=== PATIENT | male | born 1955 | race Caucasian/White ===

== ENCOUNTER → 2019-06-18 18:54 | Outpatient (BNVA) | payer BC, SELFPAY | PROVIDERS: Family Provider Family Medicine; PCP Family Medicine; Visit Provider Family Medicine | DX: R35.0 Frequency of micturition (principal); N30.01 Acute cystitis with hematuria | CPT/HCPCS: 80053; 81000 ==

== ENCOUNTER → 2019-06-25 08:43 | Outpatient (BNVA) | payer BC, SELFPAY | PROVIDERS: Family Provider Family Medicine; PCP Family Medicine; Visit Provider Urology | DX: R35.1 Nocturia (principal); N41.9 Inflammatory disease of prostate, unspecified; R97.20 Elevated prostate specific antigen [PSA]; K40.20 Bilateral inguinal hernia, without obstruction or gangrene, not specified as recurrent | CPT/HCPCS: 81001 ==

== ENCOUNTER → 2019-08-08 08:38 | Outpatient (BNVA) | payer BC, SELFPAY | PROVIDERS: Family Provider Family Medicine; PCP Family Medicine; Visit Provider Family Medicine | DX: E78.5 Hyperlipidemia, unspecified (principal); I10 Essential (primary) hypertension; R73.03 Prediabetes; K21.9 Gastro-esophageal reflux disease without esophagitis; F41.9 Anxiety disorder, unspecified | CPT/HCPCS: 80053; 80061; 82044; 83036; 85025 ==

== ENCOUNTER → 2019-12-05 10:55 | Outpatient (BNVA) | payer BC, SELFPAY | PROVIDERS: Family Provider Family Medicine; PCP Family Medicine; Visit Provider Urology | DX: R97.20 Elevated prostate specific antigen [PSA] (principal); N41.9 Inflammatory disease of prostate, unspecified | CPT/HCPCS: 81001; 84153 ==

== ENCOUNTER → 2020-02-07 13:37 | Outpatient (BNVA) | payer BC, SELFPAY | PROVIDERS: Family Provider Family Medicine; PCP Family Medicine; Visit Provider Family Medicine Adult Medicine | DX: K21.9 Gastro-esophageal reflux disease without esophagitis (principal); E78.5 Hyperlipidemia, unspecified; I10 Essential (primary) hypertension; R73.03 Prediabetes; R97.20 Elevated prostate specific antigen [PSA]; N41.9 Inflammatory disease of prostate, unspecified; F41.9 Anxiety disorder, unspecified; L72.0 Epidermal cyst | CPT/HCPCS: 80053; 80061; 83036; 84153; 84443; 85025 ==

== ENCOUNTER → 2020-02-21 13:41 | Outpatient (BNVA) | payer BC, SELFPAY | PROVIDERS: Family Provider Family Medicine; PCP Family Medicine; Visit Provider Family Medicine | DX: Z20.828 Contact with and (suspected) exposure to other viral communicable diseases (principal); R50.9 Fever, unspecified | CPT/HCPCS: 87635 ==

== ENCOUNTER → 2020-03-05 08:19 | Outpatient (BNVA) | payer BC, SELFPAY | PROVIDERS: Family Provider Family Medicine; PCP Family Medicine; Visit Provider Urology | DX: R97.20 Elevated prostate specific antigen [PSA] (principal); N39.9 Disorder of urinary system, unspecified | CPT/HCPCS: 84153 ==

== ENCOUNTER → 2020-03-12 08:11 | Outpatient (BNVA) | payer BC, SELFPAY | PROVIDERS: Family Provider Family Medicine; PCP Family Medicine; Visit Provider Urology | DX: N41.9 Inflammatory disease of prostate, unspecified (principal); R97.20 Elevated prostate specific antigen [PSA] | CPT/HCPCS: 81003 ==

== ENCOUNTER 2020-08-14 13:33 | Outpatient (CLI) | payer MEDICARE, SELFPAY ==
--- NOTE | 2020-08-14 13:48 | XR_ITS ---
WS: [id number] Right hip, AP and frog-leg views, 08/14/2020 Clinical Data: right hip pain Comparison: None. Findings: No fractures or dislocations are seen. The right hip joint is intact. The soft tissues are not remark able. The adjacent pelvis is normal. XR/XR hip RT 2-3V wo/w pel* [id number] Impression: Negative right hip. Tonnis classification: grade 0: normal radiographs
== END 2020-08-14 13:34 | disposition home or self-care (01) ==
LOC: RADWPI 13:40
PROVIDERS: Family Provider Family Medicine; PCP Family Medicine; Visit Provider Family Medicine
DX: M25.551 Pain in right hip (principal); R73.03 Prediabetes
CPT/HCPCS: 73502; 80053

== ENCOUNTER → 2020-09-10 08:23 | Outpatient (BNVA) | payer MEDICARE, SELFPAY | PROVIDERS: Family Provider Family Medicine; PCP Family Medicine; Visit Provider Urology | DX: N41.9 Inflammatory disease of prostate, unspecified (principal); R97.20 Elevated prostate specific antigen [PSA]; N20.1 Calculus of ureter; N40.1 Benign prostatic hyperplasia with lower urinary tract symptoms | CPT/HCPCS: 81003; 84153 ==

== ENCOUNTER → 2020-11-13 08:37 | Outpatient (BNVA) | payer MEDICARE, SELFPAY | PROVIDERS: Family Provider Family Medicine; PCP Family Medicine; Visit Provider Family Medicine | DX: E78.5 Hyperlipidemia, unspecified (principal); R73.03 Prediabetes | CPT/HCPCS: 80053; 80061; 83036 ==

== ENCOUNTER → 2021-02-12 09:30 | Outpatient (BNVA) | payer MEDICARE, SELFPAY | PROVIDERS: Family Provider Family Medicine; PCP Family Medicine; Visit Provider Family Medicine | DX: I10 Essential (primary) hypertension (principal); R73.03 Prediabetes; E78.5 Hyperlipidemia, unspecified | CPT/HCPCS: 82043; 85025 ==

== ENCOUNTER → 2021-03-11 08:43 | Outpatient (BNVA) | payer MEDICARE, SELFPAY | PROVIDERS: Family Provider Family Medicine; PCP Family Medicine; Visit Provider Urology | DX: R97.20 Elevated prostate specific antigen [PSA] (principal); N40.1 Benign prostatic hyperplasia with lower urinary tract symptoms; N41.9 Inflammatory disease of prostate, unspecified; Z88.2 Allergy status to sulfonamides | CPT/HCPCS: 81003; 84153 ==

== ENCOUNTER → 2021-03-18 08:24 | Outpatient (BNVA) | payer MEDICARE, SELFPAY | PROVIDERS: Family Provider Family Medicine; PCP Family Medicine; Visit Provider Nurse Practitioner Family | DX: R68.89 Other general symptoms and signs (principal); Z20.822 Contact with and (suspected) exposure to COVID-19 | CPT/HCPCS: 87400; 87426; 87635 ==

== ENCOUNTER 2021-03-20 10:47 | Emergency (ER) | payer MEDICARE, SELFPAY ==
--- NOTE | 2021-03-20 10:49 | XRR_ITS ---
PROCEDURE INFORMATION: Exam: XR Chest Exam date and time: 03/20/2021 10:49 AM Age: 65 years old Clinical indication: Shortness of breath; Additional info: SOB TECHNIQUE: Imaging protocol: XR of the chest. Views: 1 view. COMPARISON: No relevant prior studies available. FINDINGS: Lungs: Visualized portions of the lungs are clear. Pleural spaces: Unremarkable. No pleural effusion. No pneumothorax. Heart/Mediastinum: Heart is within normal limits of size. Bones/joints: There are degenerative changes in the acromioclavicular joints on both sides. There are degenerative changes in the thoracic spine. Postsurgical changes are present in the lower cervical spine. XR/XR chest 1V portable [id number] IMPRESSION: No acute infiltrate.
[2021-03-20 11:24] VITALS: BP 148/83; PULSE 90; RESP 16; TEMP 37.5; O2SAT 99
--- NOTE | 2021-03-20 11:34 | ED_ITS ---
Documented by User: LUTHER Mota 03/20/21 11:37 HPI - General Adult General: Chief complaint: Shortness of Breath/Dyspnea Stated complaint: SOB Nausia, fevor, rash Time Seen by Provider: 03/20/21 11:35 Source: patient Mode of arrival: ambulatory Limitations: no limitations History of Present Illness: HPI narrative: Patient is a 65-year-old male who presents to ED today with a complaint of malaise, myalgia/arthralgia, low-grade fevers of 100.7, and a rash. Patient states he was seen recently and had a rapid and PCR COVID performed which was negative. He is also having nausea and vomiting. Triage note states he is having abdominal and chest pain however patient tells me it is more just generalized body aches. Patient states he did start a new medication, Bactrim, about a week ago by urology. [facility] ED PFSH: Medical History Anxiety Bilateral inguinal hernia BPH loc w urin obs/LUTS Dyslipidemia Elevated PSA Epidermoid cyst Erectile dysfunction Essential hypertension GERD (gastroesophageal reflux disease) Prediabetes Prostatitis Surgical History H/O bilateral cataract extraction H/O neck surgery History of appendectomy History of foot surgery History of shoulder surgery Family History Mother , AT AGE 77 Stroke Father , AT AGE 57 Cancer KIDNEY Other CAD (coronary artery disease) Social History Smoking and tobacco status: former smoker Alcohol intake: current Alcohol intake frequency: holidays/special occasions only Marital status: Current occupational status: retired History of recent travel: No Physical Exam Const: COMMON NORMALS: patient oriented x3, no limitations and alert GENERAL APPEARANCE: cooperative OTHER: looks like he doesn't feel well Resp: COMMON NORMALS: normal respiratory effort Cardio: COMMON NORMALS: regular rate and regular rhythm RATE: regular rate RHYTHM: regular rhythm Neuro: COMMON NORMALS: patient oriented x3 SENSORIUM/ORIENTATION: Yes alert Skin: NARRATIVE SKIN EXAM: limited due to privacy in triage but maculopapular rash noted throughout anterior trunk Course Vital Signs: Vital signs: Vital Signs Temperature 99.5 F 03/20/21 11:24 Pulse Rate 72 03/20/21 14:26 Respiratory Rate 16 03/20/21 14:26 Blood Pressure 140/75 03/20/21 14:26 Pulse Oximetry 98 03/20/21 14:26 MDM - General Adult MDM Narrative: Medical decision making narrative: Brief history and physical exam was performed as part of the triage process. Due to current ED wait time patient will be placed in waiting room until a room becomes available. Explained to patient he/she will be seen in order of severity. Patient is currently safe to wait in the waiting room until we can get them placed. Patient informed that if condition worsens at any time to please let the desk assistant know. Lab Data: Labs: Lab Results 03/20/21 03/20/21 03/20/21 12:29 12:29 12:29 WBC 5.0 10^3/uL 10^3/ uL (4.0-10.0) RBC 5.72 10^6/uL H 10 ^6/uL (4.1-5.3) Hgb 16.6 g/dL g/dL (11.7-16.6) Hct 49.4 % % (42.0-52.0) MCV 86.4 fl fl (80-94) MCH 29.0 pg pg (28.0-34.0) MCHC 33.6 g/dL g/dL (30.0-36.0) RDW 13.2 % % (12.1-15.1) Plt Count 198 10^3/cmm 10^3 /cmm (130-400) MPV 10.2 fL fL (7.4-10.4) Total Counted 100 (0-100) Atypical Lymphs % 0.0 % % (0-5) Absolute Neutrophi ls 3.1 10^3/cmm 10^3 /cmm (1.4-6.5) Segmented Neutroph ils 47 % % Abs Segm Neuts (Ma n) 2.4 10/cmm 10/cmm (1.6-7.1) Band Neutrophils 14.0 % % Abs Band Neuts (Ma n) 0.7 10^3/cmm 10^3 /cmm (0.0-1.2) Absolute Lymphocyt es 1.5 10^3/cmm 10^3 /cmm (1.2-3.4) Lymphocytes (Manua l) 29 % % Monocytes (Manual) 4.0 % % Absolute Monocytes 0.2 10^3/cmm 10^3 /cmm (0.1-0.6) Eosinophils (Manua l) 6 % % Absolute Eosinophi ls 0.3 10^3/cmm 10^3 /cmm (0.0-0.7) Basophils (Manual) 0.0 % % Absolute Basophils 0.0 10^3/cmm 10^3 /cmm (0.0-0.2) Platelet Estimate Normal (Normal) Giant Platelets Trace Haptoglobin 334.0 mg/L H mg/L (30-200) PT INR APTT Fibrinogen D-Dimer Sodium 137 mmol/L mmol/L (136-145) Potassium 4.2 mmol/L mmol/L (3.5-5.1) Chloride 99 mmol/L mmol/L (98-107) Carbon Dioxide 18 mmol/L L mmol/ L (22-29) Anion Gap 24.2 H (5-19) BUN 21 mg/dL mg/dL (8-23) Creatinine 1.3 mg/dL H mg/dL (0.7-1.2) GFR Calculation 55.4 mL/min L mL/ min (90-130) Glucose 86 mg/dL mg/dL (65-115) Calculated Osmolal ity 286 mOsm/kg mOsm/ kg (285-295) Lactic Acid 2.3 mmol/L H mmol /L (0.5-2.2) Lactic Acid (Sepsi s) Calcium 8.9 mg/dL mg/dL (8.5-10.5) Total Bilirubin 0.6 mg/dL mg/dL (0.15-1.2) AST 42 U/L H U/L (0-40) ALT 49 U/L H U/L (0-41) Alkaline Phosphata se 163 IU/L H IU/L (40-130) Lactate Dehydrogen ase 306 U/L H U/L (135-225) C-Reactive Protein 30.1 mg/L H mg/L (0.0-4.9) Total Protein 8.1 g/dL g/dL (6.6-8.7) Albumin 4.5 g/dL g/dL (3.5-5.2) Globulin 3.6 g/dL g/dL (1.3-4.6) Lipase 26 U/L U/L (13-60) Urine Color Urine Appearance Urine pH Ur Specific Gravit y Urine Protein Urine Glucose (UA) Urine Ketones Urine Blood Urine Nitrate Urine Bilirubin Urine Urobilinogen Ur Leukocyte Tracey ase Influenza Type A A g Influenza Type B A g SARS-CoV-2 Ag (Rap id) 03/20/21 03/20/21 03/20/21 12:29 12:29 13:19 WBC RBC Hgb Hct MCV MCH MCHC RDW Plt Count MPV Total Counted Atypical Lymphs % Absolute Neutrophi ls Segmented Neutroph ils Abs Segm Neuts (Ma n) Band Neutrophils Abs Band Neuts (Ma n) Absolute Lymphocyt es Lymphocytes (Manua l) Monocytes (Manual) Absolute Monocytes Eosinophils (Manua l) Absolute Eosinophi ls Basophils (Manual) Absolute Basophils Platelet Estimate Giant Platelets Haptoglobin PT 15.40 SECONDS H S ECONDS (12.1-14.9) INR 1.19 (0.8-1.2) APTT 29.1 SECONDS SECO NDS (23.9-36.7) Fibrinogen 586 mg/dL H mg/dL (174-498) D-Dimer 2.20 ug/mIFEU H u g/mIFEU (0-0.59) Sodium Potassium Chloride Carbon Dioxide Anion Gap BUN Creatinine GFR Calculation Glucose Calculated Osmolal ity Lactic Acid Lactic Acid (Sepsi s) Calcium Total Bilirubin AST ALT Alkaline Phosphata se Lactate Dehydrogen ase C-Reactive Protein Total Protein Albumin Globulin Lipase Urine Color Yellow (Yellow) Urine Appearance Clear (CLEAR) Urine pH 5 (5-7) Ur Specific Gravit y 1.025 (1.005-1.030) Urine Protein Neg (Negative) Urine Glucose (UA) Norm (Normal) Urine Ketones 2+ H (Negative) Urine Blood Neg (Negative) Urine Nitrate Negative (Negative) Urine Bilirubin 1+ H (Negative) Urine Urobilinogen 1 mg/dL H mg/dL (Negative) Ur Leukocyte Tracey ase Negative (Negative) Influenza Type A A g Negative (Negative) Influenza Type B A g Negative (Negative) SARS-CoV-2 Ag (Rap id) 03/20/21 03/20/21 13:19 15:16 WBC RBC Hgb Hct MCV MCH MCHC RDW Plt Count MPV Total Counted Atypical Lymphs % Absolute Neutrophi ls Segmented Neutroph ils Abs Segm Neuts (Ma n) Band Neutrophils Abs Band Neuts (Ma n) Absolute Lymphocyt es Lymphocytes (Manua l) Monocytes (Manual) Absolute Monocytes Eosinophils (Manua l) Absolute Eosinophi ls Basophils (Manual) Absolute Basophils Platelet Estimate Giant Platelets Haptoglobin PT INR APTT Fibrinogen D-Dimer Sodium Potassium Chloride Carbon Dioxide Anion Gap BUN Creatinine GFR Calculation Glucose Calculated Osmolal ity Lactic Acid Lactic Acid (Sepsi s) 1.7 mmol/L mmol/L (0.5-2.2) Calcium Total Bilirubin AST ALT Alkaline Phosphata se Lactate Dehydrogen ase C-Reactive Protein Total Protein Albumin Globulin Lipase Urine Color Urine Appearance Urine pH Ur Specific Gravit y Urine Protein Urine Glucose (UA) Urine Ketones Urine Blood Urine Nitrate Urine Bilirubin Urine Urobilinogen Ur Leukocyte Tracey ase Influenza Type A A g Influenza Type B A g SARS-CoV-2 Ag (Rap id) Negative (Negative) Discharge Plan Discharge Prescriptions: No Action tamsulosin 0.4 mg capsule 0.4 mg PO QDAY Qty: 90 RF: 3 sulfamethoxazole-trimethoprim 800-160 mg tablet 1 tab PO BID Qty: 60 RF: 2 omeprazole 40 mg capsule,delayed release(DR/EC) 40 mg PO DAILY Qty: 90 RF: 1 atorvastatin 80 mg tablet 80 mg PO DAILY Qty: 90 RF: 1 clonazepam 1 mg tablet 1 mg PO BID PRN (Reason: anxiety) Qty: 125 RF: 1 metoprolol succinate 25 mg tablet extended release 24 hr 25 mg PO DAILY Qty: 90 RF: 1 diclofenac sodium 50 mg tablet,delayed release (DR/EC) 50 mg PO DAILY Qty: 90 RF: 1 metformin 500 mg tablet extended release 24hr 1,000 mg PO DAILY 90 Days Qty: 180 RF: 1 Coding Level of Care Code ED Corporate Travel Coordinator for Chg Fwd Exam Expanded Problem Focused Documented by User: Lorraine Longoria MD 03/20/21 15:50 HPI - General Adult General: Chief complaint: Shortness of Breath/Dyspnea Stated complaint: SOB Walterakarisvor, rash Time Seen by Provider: 03/20/21 11:35 History of Present Illness: HPI narrative: Patient is a 65-year-old male with a history of prostate issues currently on Bactrim x1 week presenting to the emergency room for generalized weakness, fatigue, muscle ache x3 days now with diffuse rash that started in his right leg. Patient says that he first noticed the rash 1 day ago and since then, the rash has spread everywhere. Patient report low-grade fever 100.7 degrees earlier today. Patient denies any cough runny nose/sore throat, abdominal complaints, nausea/vomiting, diarrhea, melena hematochezia. Patient has no known contact with somebody with similar symptoms. No prior drug reactions. Patient denies any recent tick bites. Review of Systems Narrative: Constitutional: +fever, +chills. HEENT: No vision changes CV: No chest pain, no palpitations PULM: no cough, no dyspnea. GI: No abdominal pain, no N/V/D. : No dysuria MSKEL: +diffuse muscle/joint ache SKIN: +diffuse rash NEURO: No headache, no focal weakness. HEME: No visible bruises PSYCH: Normal mood PFSH ED PFSH: Medical History Anxiety Bilateral inguinal hernia BPH loc w urin obs/LUTS Dyslipidemia Elevated PSA Epidermoid cyst Erectile dysfunction Essential hypertension GERD (gastroesophageal reflux disease) Prediabetes Prostatitis Surgical History H/O bilateral cataract extraction H/O neck surgery History of appendectomy History of foot surgery History of shoulder surgery Family History Mother , AT AGE 77 Stroke Father , AT AGE 57 Cancer KIDNEY Other CAD (coronary artery disease) Social History Smoking and tobacco status: former smoker Alcohol intake: current Alcohol intake frequency: holidays/special occasions only Marital status: Current occupational status: retired History of recent travel: No Physical Exam Narrative: EXAM NARRATIVE: Head: Atraumatic Eyes: PERRL, conjunctiva without injection ENT: Mucous membrane moist NECK: Supple, ROM intact LUNGS: LCTAB, no crackles/rhonchi CV: RRR ABDOMEN: Soft, nontender in all quadrants EXTREMITY: Normal ROM SKIN: +diffuse petchaie with confluent eryhtematous plaques nonblanching/nontender to palpation, +groin involvement NEURO: Awake and alert, no focal motor deficits PSYCH: Normal mood and affect Course Vital Signs: Vital signs: Vital Signs Temperature 99.5 F 03/20/21 11:24 Pulse Rate 72 03/20/21 14:26 Respiratory Rate 16 03/20/21 14:26 Blood Pressure 140/75 03/20/21 14:26 Pulse Oximetry 98 03/20/21 14:26 MDM - General Adult MDM Narrative: Medical decision making narrative: 65-year-old male currently on Bactrim presents emergency room with diffuse rash x1 day in the setting of generalized weakness, muscle ache, low-grade fever earlier today. Exam is consistent with diffuse erythema with maculopapular rash diffusely. There is no oral mucosal involvement. There is no signs of corneal involvement. Patient is noted to have mild edema on the face. Patient is noted to have white count 5.0. Patient has 14% bands with 6% eosinophil. Patient is noted to have creatinine 1.3. Patient status post vancomycin 50 mics per kilo immediately upon arrival and ceftriaxone 2 g. Patient is under droplet precaution at this time. Differential diagnosis including dress versus SJS versus septicemia. S/p solumedrol 125mg. Suspect D-dimer elevation is secondary acute reactive process as opposed to a pulmonary embolus. Case was discussed with Dr. Ibarra who agreed with the transfer to [facility] for management of significant drug eruption. Disposition: Transfer to outside hospital Lab Data: Labs: Lab Results 03/20/21 03/20/21 03/20/21 12:29 12:29 12:29 WBC 5.0 10^3/uL 10^3/ uL (4.0-10.0) RBC 5.72 10^6/uL H 10 ^6/uL (4.1-5.3) Hgb 16.6 g/dL g/dL (11.7-16.6) Hct 49.4 % % (42.0-52.0) MCV 86.4 fl fl (80-94) MCH 29.0 pg pg (28.0-34.0) MCHC 33.6 g/dL g/dL (30.0-36.0) RDW 13.2 % % (12.1-15.1) Plt Count 198 10^3/cmm 10^3 /cmm (130-400) MPV 10.2 fL fL (7.4-10.4) Total Counted 100 (0-100) Atypical Lymphs % 0.0 % % (0-5) Absolute Neutrophi ls 3.1 10^3/cmm 10^3 /cmm (1.4-6.5) Segmented Neutroph ils 47 % % Abs Segm Neuts (Ma n) 2.4 10/cmm 10/cmm (1.6-7.1) Band Neutrophils 14.0 % % Abs Band Neuts (Ma n) 0.7 10^3/cmm 10^3 /cmm (0.0-1.2) Absolute Lymphocyt es 1.5 10^3/cmm 10^3 /cmm (1.2-3.4) Lymphocytes (Manua l) 29 % % Monocytes (Manual) 4.0 % % Absolute Monocytes 0.2 10^3/cmm 10^3 /cmm (0.1-0.6) Eosinophils (Manua l) 6 % % Absolute Eosinophi ls 0.3 10^3/cmm 10^3 /cmm (0.0-0.7) Basophils (Manual) 0.0 % % Absolute Basophils 0.0 10^3/cmm 10^3 /cmm (0.0-0.2) Platelet Estimate Normal (Normal) Giant Platelets Trace Haptoglobin 334.0 mg/L H mg/L (30-200) PT INR APTT Fibrinogen D-Dimer Sodium 137 mmol/L mmol/L (136-145) Potassium 4.2 mmol/L mmol/L (3.5-5.1) Chloride 99 mmol/L mmol/L (98-107) Carbon Dioxide 18 mmol/L L mmol/ L (22-29) Anion Gap 24.2 H (5-19) BUN 21 mg/dL mg/dL (8-23) Creatinine 1.3 mg/dL H mg/dL (0.7-1.2) GFR Calculation 55.4 mL/min L mL/ min (90-130) Glucose 86 mg/dL mg/dL (65-115) Calculated Osmolal ity 286 mOsm/kg mOsm/ kg (285-295) Lactic Acid 2.3 mmol/L H mmol /L (0.5-2.2) Lactic Acid (Sepsi s) Calcium 8.9 mg/dL mg/dL (8.5-10.5) Total Bilirubin 0.6 mg/dL mg/dL (0.15-1.2) AST 42 U/L H U/L (0-40) ALT 49 U/L H U/L (0-41) Alkaline Phosphata se 163 IU/L H IU/L (40-130) Lactate Dehydrogen ase 306 U/L H U/L (135-225) C-Reactive Protein 30.1 mg/L H mg/L (0.0-4.9) Total Protein 8.1 g/dL g/dL (6.6-8.7) Albumin 4.5 g/dL g/dL (3.5-5.2) Globulin 3.6 g/dL g/dL (1.3-4.6) Lipase 26 U/L U/L (13-60) Urine Color Urine Appearance Urine pH Ur Specific Gravit y Urine Protein Urine Glucose (UA) Urine Ketones Urine Blood Urine Nitrate Urine Bilirubin Urine Urobilinogen Ur Leukocyte Tracey ase Influenza Type A A g Influenza Type B A g SARS-CoV-2 Ag (Rap id) 03/20/21 03/20/21 03/20/21 12:29 12:29 13:19 WBC RBC Hgb Hct MCV MCH MCHC RDW Plt Count MPV Total Counted Atypical Lymphs % Absolute Neutrophi ls Segmented Neutroph ils Abs Segm Neuts (Ma n) Band Neutrophils Abs Band Neuts (Ma n) Absolute Lymphocyt es Lymphocytes (Manua l) Monocytes (Manual) Absolute Monocytes Eosinophils (Manua l) Absolute Eosinophi ls Basophils (Manual) Absolute Basophils Platelet Estimate Giant Platelets Haptoglobin PT 15.40 SECONDS H S ECONDS (12.1-14.9) INR 1.19 (0.8-1.2) APTT 29.1 SECONDS SECO NDS (23.9-36.7) Fibrinogen 586 mg/dL H mg/dL (174-498) D-Dimer 2.20 ug/mIFEU H u g/mIFEU (0-0.59) Sodium Potassium Chloride Carbon Dioxide Anion Gap BUN Creatinine GFR Calculation Glucose Calculated Osmolal ity Lactic Acid Lactic Acid (Sepsi s) Calcium Total Bilirubin AST ALT Alkaline Phosphata se Lactate Dehydrogen ase C-Reactive Protein Total Protein Albumin Globulin Lipase Urine Color Yellow (Yellow) Urine Appearance Clear (CLEAR) Urine pH 5 (5-7) Ur Specific Gravit y 1.025 (1.005-1.030) Urine Protein Neg (Negative) Urine Glucose (UA) Norm (Normal) Urine Ketones 2+ H (Negative) Urine Blood Neg (Negative) Urine Nitrate Negative (Negative) Urine Bilirubin 1+ H (Negative) Urine Urobilinogen 1 mg/dL H mg/dL (Negative) Ur Leukocyte Tracey ase Negative (Negative) Influenza Type A A g Negative (Negative) Influenza Type B A g Negative (Negative) SARS-CoV-2 Ag (Rap id) 03/20/21 03/20/21 13:19 15:16 WBC RBC Hgb Hct MCV MCH MCHC RDW Plt Count MPV Total Counted Atypical Lymphs % Absolute Neutrophi ls Segmented Neutroph ils Abs Segm Neuts (Ma n) Band Neutrophils Abs Band Neuts (Ma n) Absolute Lymphocyt es Lymphocytes (Manua l) Monocytes (Manual) Absolute Monocytes Eosinophils (Manua l) Absolute Eosinophi ls Basophils (Manual) Absolute Basophils Platelet Estimate Giant Platelets Haptoglobin PT INR APTT Fibrinogen D-Dimer Sodium Potassium Chloride Carbon Dioxide Anion Gap BUN Creatinine GFR Calculation Glucose Calculated Osmolal ity Lactic Acid Lactic Acid (Sepsi s) 1.7 mmol/L mmol/L (0.5-2.2) Calcium Total Bilirubin AST ALT Alkaline Phosphata se Lactate Dehydrogen ase C-Reactive Protein Total Protein Albumin Globulin Lipase Urine Color Urine Appearance Urine pH Ur Specific Gravit y Urine Protein Urine Glucose (UA) Urine Ketones Urine Blood Urine Nitrate Urine Bilirubin Urine Urobilinogen Ur Leukocyte Tracey ase Influenza Type A A g Influenza Type B A g SARS-CoV-2 Ag (Rap id) Negative (Negative) Discharge Plan Discharge Prescriptions: No Action tamsulosin 0.4 mg capsule 0.4 mg PO QDAY Qty: 90 RF: 3 sulfamethoxazole-trimethoprim 800-160 mg tablet 1 tab PO BID Qty: 60 RF: 2 omeprazole 40 mg capsule,delayed release(DR/EC) 40 mg PO DAILY Qty: 90 RF: 1 atorvastatin 80 mg tablet 80 mg PO DAILY Qty: 90 RF: 1 clonazepam 1 mg tablet 1 mg PO BID PRN (Reason: anxiety) Qty: 125 RF: 1 metoprolol succinate 25 mg tablet extended release 24 hr 25 mg PO DAILY Qty: 90 RF: 1 diclofenac sodium 50 mg tablet,delayed release (DR/EC) 50 mg PO DAILY Qty: 90 RF: 1 metformin 500 mg tablet extended release 24hr 1,000 mg PO DAILY 90 Days Qty: 180 RF: 1 Coding Level of Care Code ED Corporate Travel Coordinator for Rosalindag Fwd Exam Expanded Problem Focused
[2021-03-20 11:56] VITALS: BP 160/78; PULSE 97; RESP 20; O2SAT 99
[2021-03-20] MEDS: vancomycin 1,500 MG/300 ML PIGGYBACK 200 MG IV (12:32)
[2021-03-20] MEDS: acetaminophen 500 mg Tablet 1000 MG PO (12:32)
[2021-03-20 12:39] LABS: Hematocrit 49.4 % (42.0-52.0); Hemoglobin 16.6 g/dL (11.7-16.6); Mean Corpuscular HGB Conc 33.6 g/dL (30.0-36.0); Mean Corpuscular Volume 86.4 fl (80-94); Mean Platelet Volume 10.2 fL (7.4-10.4); Platelet Count 198 10^3/cmm (130-400); Red Blood Count 5.72 10^6/uL (4.1-5.3); Red Cell Distribution Width 13.2 % (12.1-15.1)
[2021-03-20] MEDS: cefTRIAXone 2,000 MG in sodium chloride 0.9% (plus) 50 ML 100 MG IV (12:42)
[2021-03-20 12:47] LABS: Add Urine Microscopic? NO; Charge for UA Resulting for Rev
[2021-03-20 12:52] LABS: Bilirubin Urine 1+ (Negative); Blood Urine Neg (Negative); Glucose Urine UA Norm (Normal); Ketones Urine 2+ (Negative); Leukocyte Esterase Urine Negative (Negative); Nitrate Urine Negative (Negative); Protein Urine Neg (Negative); Specific Gravity, Urine 1.025 (1.005-1.030); Urine Appearance Clear (CLEAR); Urine Color Yellow (Yellow); Urobilinogen Urine 1 mg/dL (Negative); pH Urine 5 (5-7)
[2021-03-20 12:54] LABS: INR 1.19 (0.8-1.2)
[2021-03-20 12:55] LABS: Partial Thromboplastin Time 29.1 SECONDS (23.9-36.7)
[2021-03-20 12:59] LABS: Alanine Aminotransferase 49 U/L (0-41); Albumin Level 4.5 g/dL (3.5-5.2); Alkaline Phosphatase 163 IU/L (40-130); Anion Gap 24.2 (5-19); Aspartate Amino Transferase 42 U/L (0-40); Blood Urea Nitrogen 21 mg/dL (8-23); C Reactive Protein 30.1 mg/L (0.0-4.9); Calcium 8.9 mg/dL (8.5-10.5); Carbon Dioxide 18 mmol/L (22-29); Chloride 99 mmol/L (98-107); Globulin 3.6 g/dL (1.3-4.6); Glomerular Filtration Rate 55.4 mL/min (90-130); Glucose 86 mg/dL (65-115); Lactate Dehydrogenase 306 U/L (135-225); Lipase 26 U/L (13-60); Osmolality Calculated 286 mOsm/kg (285-295); Potassium 4.2 mmol/L (3.5-5.1); Sodium 137 mmol/L (136-145); Total Bilirubin 0.6 mg/dL (0.15-1.2); Total Protein 8.1 g/dL (6.6-8.7)
[2021-03-20 13:00] LABS: Creatinine Clr Calc Pharmacy 67.8378; Lactic Sepsis W/Reflex 2.3 mmol/L (0.5-2.2)
[2021-03-20 13:26] LABS: Absolute Eosinophils 0.3 10^3/cmm (0.0-0.7); Absolute Segmented Neutrophil 2.4 10/cmm (1.6-7.1); Band Neutrophils Absolute 0.7 10^3/cmm (0.0-1.2); Eosinophils 6 %; Lymphocytes 29 %; Lymphocytes Absolute 1.5 10^3/cmm (1.2-3.4); Monocytes Absolute 0.2 10^3/cmm (0.1-0.6); Segmented Neutrophils 47 %; Total Cells Counted 100 (0-100)
[2021-03-20 13:27] VITALS: PULSE 85; RESP 17
[2021-03-20 13:27] LABS: Absolute Neutrophil 3.1 10^3/cmm (1.4-6.5); Giant Platelets Trace; Platelet Estimate Normal (Normal)
[2021-03-20 13:43] LABS: Fibrinogen 586 mg/dL (174-498)
[2021-03-20 13:52] LABS: Influenza A by IFA Negative (Negative); SARS Covid-2 Antigen Negative (Negative)
[2021-03-20 13:53] LABS: Influenza B by IFA Negative (Negative)
[2021-03-20] MEDS: doxycycline 100 MG in sodium chloride 0.9% (plus) 100 ML IV (14:22)
[2021-03-20] MEDS: LORazepam 2 mg/mL INJ 1 mL 1 MG IVP (14:22)
[2021-03-20 14:24] LABS: Reflex Lactate Order REFLEX LACTIC ORDERD
[2021-03-20 14:26] VITALS: BP 140/75; PULSE 72; RESP 16; O2SAT 98
[2021-03-20 15:41] LABS: Lactic Acid level (Lactate) 1.7 mmol/L (0.5-2.2)
[2021-03-20 18:34] VITALS: PULSE 84; O2SAT 99
[2021-03-22 04:17] LABS: Quest SARS-CoV-2 RNA NOT DETECTED (NOT DETECTED)
[2021-03-22 13:23] LABS: Lyme AB Screen <0.90 index
[2021-03-23 20:58] LABS: RMSF IGG NOT DETECTED; RMSF IGM NOT DETECTED
[2021-03-24 17:27] LABS: E. Chaffeensis AB IGG <1:64; E. Chaffeensis AB IGM <1:20
== END 2021-03-20 18:36 ==
PROVIDERS: Physician Assistant; Emergency Provider Emergency Medicine; PCP Family Medicine
DX: R53.81 Other malaise (principal); R50.9 Fever, unspecified; M79.10 Myalgia, unspecified site; E78.5 Hyperlipidemia, unspecified; I10 Essential (primary) hypertension; Z87.891 Personal history of nicotine dependence; Z20.822 Contact with and (suspected) exposure to COVID-19
CPT/HCPCS: 71045; 80053; 81003; 83010; 83605; 83615; 83690; 85007; 85027; 85378; 85384; 85610; 85730; 86140; 86618; 86666; 86757; 87040; 87426; 87635; 87804; 96365; 96367; 96375; 99285; J0696; J2060; J2930; J3370; J3490

== ENCOUNTER → 2021-03-29 14:27 | Outpatient (BNVA) | payer MEDICARE, SELFPAY | PROVIDERS: PCP Family Medicine; Visit Provider Family Medicine | DX: R21 Rash and other nonspecific skin eruption (principal); Z88.2 Allergy status to sulfonamides | CPT/HCPCS: 80053; 85025 ==

== ENCOUNTER → 2021-04-22 16:10 | Outpatient (BNVA) | payer MEDICARE, SELFPAY | PROVIDERS: PCP Family Medicine; Visit Provider Urology | DX: N41.9 Inflammatory disease of prostate, unspecified (principal); R97.20 Elevated prostate specific antigen [PSA] | CPT/HCPCS: 81003; 84153 ==

== ENCOUNTER 2021-07-27 05:53 | Emergency (ER) | payer MEDICARE, SELFPAY ==
[2021-07-27] VITALS (7 sets, daily range): BP systolic 121–162; BP diastolic 77–88; PULSE 59–79; RESP 14–18; TEMP 36.6; O2SAT 94–98; BMI 27.8
--- NOTE | 2021-07-27 06:00 | ED_ITS ---
HPI - Chest Pain General: Chief Complaint: Chest Pain Stated Complaint: chest pain, sob Time Seen by Provider: 07/27/21 05:58 Source: patient Mode of arrival: ambulatory Limitations: no limitations History of Present Illness: 66-year-old male presents emergency room with complaints of chest discomfort. Began last night around midnight 6 hours prior to arrival. He was at rest in bed and it began to radiate into his left shoulder and his left arm is waxed and waned throughout the night woke him up f rom sleep. He has not had any nausea or vomiting like that he has not had any fever sweats or chills. No recent illness no dysuria urgency or frequency. Patient has no known history of heart disease. Did state he had a stress test done around 10 years ago that was reported to him as normal. Patient is diabetic. MD complaint: chest pain Onset (ago): hour(s) Timing of current episode: still present Prior episodes: Yes Onset: during rest Pain location: left chest Pain radiation: left arm and left shoulder Severity: mild Quality: tightness, aching and heaviness Relieving factors: nothing Exacerbating factors: nothing Associated symptoms: Deny abdominal pain, diaphoresis, dyspnea, fever(s), leg edema, nausea, palpitations, sense of impending doom, syncope or vomiting Treatment prior to arrival: none Risk Factors: Coronary artery disease risk factors: diabetes Review of Systems Const: Reports: fatigue; Denies: fever(s), chills or diaphoresis ENMT: Denies: throat pain, ear or mastoid pain, nasal discharge or nasal congestion Card: Reports: chest pain; Denies: palpitations, edema, swelling of feet/ankles or syncope Resp: Denies: dyspnea, productive cough, non-productive cough or wheezing GI: Denies: abdominal pain, nausea or vomiting : Denies: flank pain, dysuria, urinary frequency or urinary urgency Skin/Breast: Denies: rash or pruritus Neuro: Denies: headache(s) Psych: Reports: anxiety PFSH ED PFSH: Medical History Anxiety Bilateral inguinal hernia BPH loc w urin obs/LUTS Dyslipidemia Elevated PSA Epidermoid cyst Erectile dysfunction Essential hypertension GERD (gastroesophageal reflux disease) Prediabetes Prostatitis Surgical History H/O bilateral cataract extraction H/O neck surgery History of appendectomy History of foot surgery History of shoulder surgery Family History Mother , AT AGE 77 Stroke Father , AT AGE 57 Cancer KIDNEY Other CAD (coronary artery disease) Social History Alcohol intake: current Alcohol intake frequency: holidays/special occasions only Marital status: Current occupational status: retired History of recent travel: No Physical Exam Const: COMMON NORMALS: no acute distress GENERAL APPEARANCE: cooperative and comfortable ORIENTATION/CONSCIOUSNESS: Yes awake, Yes oriented to person, Yes oriented to place and Yes oriented to time HENMT: COMMON NORMALS: normocephalic, atraumatic and hearing grossly normal bilaterally HEAD & SCALP: normocephalic and atraumatic Neck/C-Spine: COMMON NORMALS: no JVD Resp: COMMON NORMALS: normal respiratory effort, No retractions, No use of accessory muscles and clear to auscultation bilaterally AUSCULTATION: clear to auscultation bilaterally Cardio: COMMON NORMALS: no JVD, regular rate, regular rhythm and No murmurs present (Cardio) RATE: regular rate RHYTHM: regular rhythm GI: COMMON NORMALS: Soft to palpation and No hepatosplenomegaly present AUSCULTATION: Yes normoactive bowel sounds PALPATION: Yes Soft to palpation, No Tenderness to palpation present (GI), No Guarding due to palpation present (GI) and Yes No hepatosplenomegaly present Extremity: COMMON NORMALS: normal to inspection, capillary refill normal, no clubbing, cyanosis or edema, no calf tenderness and no pedal edema Neuro: SENSORIUM/ORIENTATION: Yes oriented to person, Yes oriented to place and Yes oriented to time Skin: COMMON NORMALS: no rashes or lesions noted GENERAL SKIN EXAM: no rashes or lesions noted Course Vital Signs: Vital signs: Vital Signs Temperature 97.8 F 07/27/21 05:59 Pulse Rate 62 07/27/21 08:34 Respiratory Rate 16 07/27/21 08:34 Blood Pressure 149/88 07/27/21 08:34 Pulse Oximetry 96 07/27/21 08:34 MDM - Chest Pain Medical Decision Making Patient has had symptoms for 4 days now troponins negative EKG does not show any acute changes we will discharge patient home. Some of this may be his metoprolol is causing enough bradycardia to make him fatigued. Does not appear to be cardiac in nature in terms of no EKG changes or troponin changes over 4 days of symptoms. I Juanita start him on isosorbide mononitrate and will have him follow-up with his primary care doctor next week continue to take aspirin daily. We will also set him up for a Holter monitor to see how much bradycardia he is having if it correlates with symptoms. Return if he has further problems. Case management make arrangements for the Holter monitor and the Lexiscan sestamibi stress test. Medical Records I reviewed the patient's medical records. Lab Data I reviewed the patient's lab results. : 07/27/21 06:00 07/27/21 06:00 Radiology Impressions Chest X-Ray 07/27/21 06:09 Impression: Negative chest. Laboratory Results WBC 5.1 10^3/uL (4.0-10.0) 07/27/21 06:00 RBC 5.16 10^6/uL (4.1-5.3) 07/27/21 06:00 Hgb 14.5 g/dL (11.7-16.6) 07/27/21 06:00 Hct 43.9 % (42.0-52.0) 07/27/21 06:00 MCV 85.1 fl (80-94) 07/27/21 06:00 MCH 28.1 pg (28.0-34.0) 07/27/21 06:00 MCHC 33.0 g/dL (30.0-36.0) 07/27/21 06:00 RDW 12.5 % (12.1-15.1) 07/27/21 06:00 Plt Count 287 10^3/cmm (130-400) 07/27/21 06:00 MPV 9.9 fL (7.4-10.4) 07/27/21 06:00 Neut % (Auto) 33.9 % 07/27/21 06:00 Lymph % (Auto) 48.2 % 07/27/21 06:00 Calloway % (Auto) 11.8 % 07/27/21 06:00 Eos % (Auto) 5.1 % 07/27/21 06:00 Baso % (Auto) 1.0 % 07/27/21 06:00 Neut # (Auto) 1.72 10^3/uL (1.8-7.7) L 07/27/21 06:00 Lymph # (Auto) 2.5 10^3/uL (0.8-4.8) 07/27/21 06:00 Calloway # (Auto) 0.6 10^3/uL (0.2-0.9) 07/27/21 06:00 Eos # (Auto) 0.3 10^3/uL (0.0-0.8) 07/27/21 06:00 Baso # (Auto) 0.1 10^3/uL (0.0-0.1) 07/27/21 06:00 Nucleated RBC % (auto) 0 % 07/27/21 06:00 Nucleated RBCs # 0.0 /100WBC 07/27/21 06:00 Sodium 138 mmol/L (136-145) 07/27/21 06:00 Potassium 4.1 mmol/L (3.5-5.1) 07/27/21 06:00 Chloride 106 mmol/L (98-107) 07/27/21 06:00 Carbon Dioxide 23 mmol/L (22-29) 07/27/21 06:00 Anion Gap 13.1 (5-19) 07/27/21 06:00 BUN 19 mg/dL (8-23) 07/27/21 06:00 Creatinine 1.1 mg/dL (0.7-1.2) 07/27/21 06:00 GFR Calculation 67.0 mL/min (90-130) L 07/27/21 06:00 Glucose 130 mg/dL (65-115) H 07/27/21 06:00 Calculated Osmolality 290 mOsm/kg (285-295) 07/27/21 06:00 Calcium 8.3 mg/dL (8.5-10.5) L 07/27/21 06:00 Total Bilirubin 0.2 mg/dL (0.15-1.2) 07/27/21 06:00 AST 17 U/L (0-40) 07/27/21 06:00 ALT 28 U/L (0-41) 07/27/21 06:00 Alkaline Phosphatase 156 IU/L (40-130) H 07/27/21 06:00 Troponin T Baseline 12 ng/L (0-15) 07/27/21 06:00 Troponin T 120 Minute 10.55 ng/L (0-15) 07/27/21 08:29 Total Protein 6.7 g/dL (6.6-8.7) 07/27/21 06:00 Albumin 4.4 g/dL (3.5-5.2) 07/27/21 06:00 Globulin 2.3 g/dL (1.3-4.6) 07/27/21 06:00 Discharge Plan Discharge Patient Disposition: Home Clinical Impression: Chest pain, Essential hypertension Condition: Stable Prescriptions: New isosorbide mononitrate 30 mg tablet extended release 24 hr 30 mg PO DAILY Qty: 30 0RF No Action clonazepam 1 mg tablet 1 mg PO BID PRN (Reason: anxiety) Qty: 125 1RF Rx Instructions: Must last 90 days Aspir-81 81 mg Tablet,Delayed Release (Dr/Ec) 81 mg PO QAM 0RF atorvastatin 80 mg tablet 80 mg PO QAM 0RF omeprazole 40 mg capsule,delayed release(DR/EC) 40 mg PO QAM 0RF diclofenac sodium 50 mg tablet,delayed release (DR/EC) 50 mg PO QPM 0RF metoprolol succinate 25 mg tablet extended release 24 hr 25 mg PO QAM 0RF alfuzosin 10 mg tablet extended release 24 hr 10 mg PO QPM 0RF Rx Instructions: administer after the same meal each day metformin 500 mg tablet extended release 24hr 1,000 mg PO QAM 0RF Discharge Orders: Discharge ED (Routine); Ordered 07/27/21 Ordered By: Antwon Jarrett Referrals: Mirta Welch DO [Primary Care Provider] - Patient Instructions: Opioid Safety Activity Restrictions/Additional Instructions: reservoir engineering manager will make arrangements for you to follow-up with an outpatient Vern sestamibi stress test. Coding Level of Care Code ED Flatcar Whacker for Fernando Fwjaci Exam Comprehensive
--- NOTE | 2021-07-27 06:09 | XR_ITS ---
WS: [id number] Portable AP upright chest, 07/27/2021 Clinical Data: chest pain Comparison: Portable chest, 03/20/2021. Findings: No nodules, masses or effusions are seen. The heart is normal. The pulmonary vascularity is not increased. No pneumonia or pneumothorax is seen. There is an anterior cervical disc fusion. Sparkle tor leads are on the chest wall. XR/XR chest 1V portable [id number] Impression: Negative chest.
--- NOTE | 2021-07-27 06:09 | ECG_ITS ---
[facility] Test Date: 2021-07-27 Pat Name: Chapo Hope Department: Room: Gender: Male Service Delivery Director: : 1955 Requested By: Antwon Banda Order Number: [id number] Shilo MD: Louise Metzger M.D. Measurements Intervals [place] Rate: 59 P: 41 HI: 174 QRS: -8 QRSD: 80 T: -4 QT: 390 QTc: 389 Interpretive Statements SINUS BRADYCARDIA Compared to ECG 07/27/2021 06:01:30 Sinus rhythm no longer present Electronically Signed On 07-27-2021 23:19:36 CDT by Louise Metzger M.D. [email or web address] hospitalWorld Surveillance Group/store/OM/[id number]
[2021-07-27] MEDS: aspirin 81 mg Chew Tablet 324 MG PO (06:14)
[2021-07-27 06:16] LABS: Basophils # 0.1 10^3/uL (0.0-0.1); Eosinophils # 0.3 10^3/uL (0.0-0.8); Eosinophils % 5.1 %; Hematocrit 43.9 % (42.0-52.0); Hemoglobin 14.5 g/dL (11.7-16.6); Lymphocytes # 2.5 10^3/uL (0.8-4.8); Lymphocytes % 48.2 %; Mean Corpuscular Hemoglobin 28.1 pg (28.0-34.0); Mean Corpuscular Volume 85.1 fl (80-94); Mean Platelet Volume 9.9 fL (7.4-10.4); Monocytes # 0.6 10^3/uL (0.2-0.9); Monocytes % 11.8 %; Neutrophils # 1.72 10^3/uL (1.8-7.7); Neutrophils % 33.9 %; Nucleated Red Blood Cells % 0 %; Platelet Count 287 10^3/cmm (130-400); Red Blood Count 5.16 10^6/uL (4.1-5.3); Red Cell Distribution Width 12.5 % (12.1-15.1); White Blood Count 5.1 10^3/uL (4.0-10.0)
[2021-07-27 06:34] LABS: Alanine Aminotransferase 28 U/L (0-41); Albumin Level 4.4 g/dL (3.5-5.2); Alkaline Phosphatase 156 IU/L (40-130); Anion Gap 13.1 (5-19); Aspartate Amino Transferase 17 U/L (0-40); Blood Urea Nitrogen 19 mg/dL (8-23); Calcium 8.3 mg/dL (8.5-10.5); Carbon Dioxide 23 mmol/L (22-29); Chloride 106 mmol/L (98-107); Globulin 2.3 g/dL (1.3-4.6); Glucose 130 mg/dL (65-115); Osmolality Calculated 290 mOsm/kg (285-295); Potassium 4.1 mmol/L (3.5-5.1); Sodium 138 mmol/L (136-145); Total Bilirubin 0.2 mg/dL (0.15-1.2); Total Protein 6.7 g/dL (6.6-8.7); Troponin(5th) Baseline 12 ng/L (0-15)
--- NOTE | 2021-07-27 08:09 | ECG_ITS ---
[facility] Test Date: 2021-07-27 Pat Name: Chapo Hope Department: Room: Gender: Male Voice Pathologist: : 1955 Requested By: Antwon Banda Order Number: [id number] Shilo MD: Louise Metzger M.D. Measurements Intervals [place] Rate: 69 P: 49 CO: 171 QRS: -7 QRSD: 88 T: 32 QT: 383 QTc: 412 Interpretive Statements SINUS RHYTHM No previous ECG available for comparison Electronically Signed On 07-27-2021 23:23:26 CDT by Louise Metzger M.D. [id number]
[2021-07-27 09:07] LABS: Troponin 5 2HR 10.55 ng/L (0-15)
[2021-07-27 09:23] LABS: Troponin 5 2HR Delta -1.45 ABS# (0-10)
--- NOTE | 2021-07-29 13:16 | DCPLANNER ---
Addendum entered by Kassandra Arango 08/04/21 20:07: Patient had a follow up appointment scheduled for a 48 hour halter monitor - patient did attend appointment. Addendum entered by Kassandra Arango 07/30/21 14:21: Patient has a follow up appointment scheduled for Monday, July 03, 2021 at [facility] for a 48 hour halter monitor. Clinic will call patient with appointment information. Original Note: manager strategic partnerships had message to schedule an out patient 48 hour halter monitor for patient. manager strategic partnerships faxed signed order to [facility] for holter monitor. Clinic will call patient with appointment information.
== END 2021-07-27 09:38 | disposition home or self-care (01) ==
PROVIDERS: Emergency Provider Family Medicine; PCP Family Medicine
DX: R07.9 Chest pain, unspecified (principal); I10 Essential (primary) hypertension; Z79.82 Long term (current) use of aspirin
CPT/HCPCS: 71045; 80053; 84484; 85025; 93005; 99284

== ENCOUNTER → 2021-08-02 13:44 | Outpatient (BNVA) | payer MEDICARE, SELFPAY | PROVIDERS: PCP Family Medicine; Visit Provider Internal Medicine | DX: R00.1 Bradycardia, unspecified (principal) | CPT/HCPCS: 93225 ==

== ENCOUNTER → 2021-08-03 16:04 | Outpatient (BNVA) | payer MEDICARE, SELFPAY | PROVIDERS: PCP Family Medicine; Visit Provider Family Medicine | DX: R53.83 Other fatigue (principal); R73.03 Prediabetes; I10 Essential (primary) hypertension | CPT/HCPCS: 80048; 83036; 84443 ==

== ENCOUNTER → 2021-08-10 11:10 | Outpatient (BNVA) | payer MEDICARE, SELFPAY | PROVIDERS: PCP Family Medicine; Visit Provider Family Medicine | DX: M25.512 Pain in left shoulder (principal) | CPT/HCPCS: 73030 ==

== ENCOUNTER → 2021-08-18 12:46 | Outpatient (BNVA) | payer MEDICARE, SELFPAY | PROVIDERS: PCP Family Medicine; Referring Provider Family Medicine; Visit Provider Otolaryngology | DX: H93.13 Tinnitus, bilateral (principal) | CPT/HCPCS: 99203 ==

== ENCOUNTER 2021-09-22 13:23 | Outpatient (CLI) | payer MEDICARE, SELFPAY ==
--- NOTE | 2021-09-22 13:15 | CT_ITS ---
WS: [id number] CT LUMBAR SPINE, noncontrast. HISTORY: lumbar spine pain TECHNIQUE: Contiguous 2.5 mm axial imaging are performed. Sagittal and coronal reformats are submitte d and reviewed. All CT scans at [facility] use at least one of these dose optimization techni ques: automated exposure control; mA and/or kV adjustment per patient size (includes targeted exams w here dose is matched to clinical indication); or iterative reconstruction. IV contrast: None DLP: 1769.22 mGy.cm COMPARISON: None available. Posterior lumbar alignment is normal. No acute fracture. Moderate disc space narrowing at L5-S1 with vacuum disc phenomenon. Moderate facet joint arthritis at L4-5. Small bony fragments and osteophytes involving the facets. No fracture is identified. L1-2: No stenosis or disc protrusion. L2-3: No stenosis or disc protrusion. L3-4: Mild annular disc bulge with a central small disc protrusion. No stenosis. L4-5: Mild annular disc bulging with ligamentum flavum and facet arthritis. Disc bulging encroaches u aleksandr the thecal sac and into the subarticular recesses and foramina. Mild central, bilateral subarticu lar recess and foraminal stenosis. There is disc mildly contacting the traversing L5 nerve roots. L5-S1: Mild osteophytic ridging and annular disc bulge. Small asymmetric LEFT foraminal disc protrusi on and osteophyte. Mild bilateral foraminal stenosis. There is very mild disc and osteophyte contact on the exiting L5 nerve roots bilaterally. Mild atherosclerotic plaque within the visualized aorta. CT/CT lumbar spine wo con* [id number] IMPRESSION: 1. No acute lumbar spine fracture. No severe stenosis. 2. Mild central, bilateral subarticular recess and foraminal stenosis L4-5 due to disc osteophyte disease. Mild disc contacting the traversing L5 nerve roots . 3. Asymmetric LEFT foraminal disc protrusion or osteophyte at L5-S1. Mild bila teral foraminal stenosis.
== END 2021-09-22 13:24 | disposition home or self-care (01) ==
LOC: RAD 13:25
PROVIDERS: PCP Family Medicine; Visit Provider Emergency Medicine
DX: M54.50 Low back pain, unspecified (principal)
CPT/HCPCS: 72131; J1100

== ENCOUNTER → 2021-10-11 13:45 | Outpatient (BNVA) | payer MEDICARE, SELFPAY | PROVIDERS: PCP Family Medicine; Visit Provider Otolaryngology | DX: H93.13 Tinnitus, bilateral (principal) | CPT/HCPCS: 99213 ==

== ENCOUNTER 2021-10-11 14:29 | Outpatient (CLI) | payer MEDICARE, SELFPAY | END 2021-10-11 14:30 | disposition home or self-care (01) | LOC: LAB 14:33 | PROVIDERS: PCP Family Medicine; Visit Provider Urology | DX: R97.20 Elevated prostate specific antigen [PSA] (principal) | CPT/HCPCS: 36415; 84153 ==

== ENCOUNTER → 2021-10-12 10:55 | Outpatient (BNVA) | payer MEDICARE, SELFPAY | PROVIDERS: PCP Family Medicine; Visit Provider Orthopaedic Surgery | DX: M54.2 Cervicalgia (principal); M54.50 Low back pain, unspecified; Z98.1 Arthrodesis status; M50.321 Other cervical disc degeneration at C4-C5 level; M50.322 Other cervical disc degeneration at C5-C6 level; M50.323 Other cervical disc degeneration at C6-C7 level | CPT/HCPCS: 72050; 72110; 99204 ==

== ENCOUNTER → 2021-10-21 13:22 | Outpatient (BNVA) | payer MEDICARE, SELFPAY | PROVIDERS: PCP Family Medicine; Visit Provider Urology | DX: N40.1 Benign prostatic hyperplasia with lower urinary tract symptoms (principal); N41.9 Inflammatory disease of prostate, unspecified; R97.20 Elevated prostate specific antigen [PSA]; N52.9 Male erectile dysfunction, unspecified | CPT/HCPCS: 51798; 81003; 99214 ==

== ENCOUNTER 2021-10-25 06:46 | Outpatient (CLI) | payer MEDICARE, SELFPAY ==
[2021-10-25 07:48] VITALS: BMI 28.5
--- NOTE | 2021-10-25 07:48 | ECG_ITS ---
[facility] Test Date: 2021-10-25 Pat Name: Chapo Hope Department: Room: Gender: Male Generator Man: : 1955 Requested By: Mirta Welch Order Number: [id number] Shilo MD: Alpesh Lund M.D. Interpretive Statements NAME OF STUDY: LEXISCAN SESTAMIBI STRESS TEST INDICATION: Chest Pain, PROCEDURE: At the baseline, the EKG revealed normal sinus rhythm with some nonspecific T wave changes.. The baseline blood pressure was 133/81 mm Hg with a heart rate of 65 beats/min. Lexiscan was infused over a period of 20 seconds. A total of 0.4 milligrams of Lexiscan was infused. The stress phase was continued for a total of 5 minutes. Heart rate at the end of the stress phase was 85 with a blood pressure 143/76. The EKG at the peak infusion revealed some nonspecific T wave changes. Sestamibi was injected 20 seconds after the Lexiscan infusion. Blood pressure at the end of the recovery phase was 147/70 with a heart rate of 85 per minute. CONCLUSION: 1. No significant EKG changes with the LexiScan infusion 2. No LexiScan induced chest pain or cardiac arrhythmia 3. Normal blood pressure and heart rate response 4. Sestamibi/sestamibi perfusion scan pending; see separate report. Electronically Signed On 10-29-2021 17:25:32 CDT by Alpesh Lund M.D. [id number]
--- NOTE | 2021-10-25 07:49 | NMCV_ITS ---
NM frankie perf SPECT r/s* [id number] Chapo Hope Age: 66 Gender: M : 1955 Exam Date: 10/25/2021 07:49 Ordering Phys: Mirta Welch DO Technologist: URSULA Khanna Exam Location: [facility] Indications: Chest pain STRESS TEST Please [facility] IMAGE PROTOCOL Rest/Stress 1 Radiopharmaceutical Dose (mCi) Administration Site Administered by Rest: Tc-99m 10.8 IV URSULA Khanna Sestamibi Stress:Tc-99m 33.0 IV URSULA Khanan Sestamibi Rest: 25-Oct-2021 60 Discovery 630 Stress: 25-Oct-2021 30 EnglishUp 630 SPECT RESULTS Technical Quality: Excellent Raw Data Analysis: Normal Image Corrections: No attenuation or motion correction applied Summed Stress Score: 0 Summed Rest Score: 0 Summed Difference Score: 0 PERFUSION FINDINGS Uniform myocardial tracer uptake with no significant perfusion abnormalities. FUNCTIONAL RESULTS (calculated via Gated SPECT) Stress Image LV EF (%): 77 Stress EDV (mL):78 TID: 1 Stress ESV (mL):18 FUNCTIONAL FINDINGS: Segmental wall motion analysis revealing no gross wall motion abnormalities IMPRESSIONS 1. Myocardial perfusion imaging revealing fairly uniform myocardial tracer uptake. 2. Normal LV ejection fraction of 77%. 3. LV wall motion analysis revealing no gross wall motion normalities. 4. Normal LV volume Low probability for coronary ischemia, based on the above findings No similar previous studies are available for comparison Dr Alpesh Lund MD [facility] (Electronically Signed) Final Date: 25 October 2021 12:46 S
[2021-10-25] MEDS: regadenoson 0.4 Mg/5 ml Syringe IVP (08:54)
[2021-10-25 09:14] VITALS: BP 147/70; PULSE 85
== END 2021-10-25 06:47 | disposition home or self-care (01) ==
PROVIDERS: PCP Family Medicine; Visit Provider Family Medicine
DX: R07.9 Chest pain, unspecified (principal); R06.02 Shortness of breath
CPT/HCPCS: 78452; 93017; A9500; J2785

== ENCOUNTER → 2021-11-04 09:30 | Outpatient (BNVA) | payer MEDICARE, SELFPAY | PROVIDERS: PCP Family Medicine; Visit Provider Anesthesiology Pain Medicine | DX: M79.604 Pain in right leg (principal); M79.605 Pain in left leg; M47.816 Spondylosis without myelopathy or radiculopathy, lumbar region; M51.16 Intervertebral disc disorders with radiculopathy, lumbar region; M50.90 Cervical disc disorder, unspecified, unspecified cervical region; M47.812 Spondylosis without myelopathy or radiculopathy, cervical region | CPT/HCPCS: 99205 ==

== ENCOUNTER → 2021-11-25 13:06 | Outpatient (BNVA) | payer MEDICARE, SELFPAY | PROVIDERS: PCP Family Medicine; Visit Provider Anesthesiology Pain Medicine | DX: Z79.891 Long term (current) use of opiate analgesic (principal); M47.816 Spondylosis without myelopathy or radiculopathy, lumbar region | CPT/HCPCS: 64493; 64494; 64495; J3490 ==

== ENCOUNTER 2021-12-02 11:01 | Outpatient (CLI) | payer MEDICARE, SELFPAY ==
--- NOTE | 2021-12-02 11:00 | CT_ITS ---
WS: [id number] CT LUMBAR SPINE TECHNIQUE: Contrast-enhanced CT of the lumbar spine with coronal and sagittal reformatted images. CLINICAL INFORMATION: back pain COMPARISON: Noncontrast CT lumbar spine September 22, 2021 DLP: 1444.[address] scans at [facility] use at least one of these dose optimization techniques: automated e xposure control; mA and/or kV adjustment per patient size (includes targeted exams where dose is matc hed to clinical indication); or iterative reconstruction. FINDINGS: Mild lumbar curve. No acute compression. No high-grade central canal stenosis. Disc space narrowing w orse L5-S1. L1-L2: Normal. L2-L3: No significant disc bulging. Spinal canal and foramen are patent. Mild facet arthropathy. L3-L4: Minimal annular bulging. Osteophytic ridging. Moderate facet arthropathy. LEFT foraminal protr usion with Mild LEFT and no significant RIGHT foraminal narrowing. Slight narrowing subarticular rece ss bilaterally. L4-L5: Mild disc bulging with osteophytic ridging. Slight impingement traversing L5 nerve roots bilat erally LEFT greater than RIGHT. Advanced facet arthropathy. Moderate LEFT greater than RIGHT foramina l narrowing. Mild central canal stenosis. L5-S1: LEFT eccentric disc osteophyte ridging. Impingement on the exiting LEFT L5 nerve root proximal ly. Mild RIGHT bony foraminal narrowing. Mild facet arthropathy at this level. Spinal canal is patent . Adrenal glands are normal. Visualized pelvic bony structures: Normal. Paravertebral soft tissues: Normal. CT/CT lumbar spine w con [id number] IMPRESSION: 1. Mild lumbar curve. No acute compression. No high-grade central canal stenos is. 2. Disc osteophyte complex L4-L5 with mild central canal stenosis and impingem ent on the traversing L5 nerve roots bilaterally. Moderate LEFT L4-L5 foraminal narrowing impinges the exiting LEFT L4 nerve root. Moderate facet arthropathy at this level with ligamentum flavum hypertrophy. 3. Eccentric disc osteophyte ridging L5-S1 with impingement on the exiting LEF T L5 nerve root with mild to moderate LEFT foraminal narrowing. 4. LEFT foraminal protrusion L3-L4 with slight contact of the far exiting LEFT L3 nerve root. Recommend correlation LEFT L3 nerve root symptoms. 5. Moderate facet arthropathy worse at L3-L4 and L4-L5.
--- NOTE | 2021-12-02 11:09 | CT_ITS ---
WS: [id number] CT CERVICAL MYELOGRAM TECHNIQUE: CT of the cervical spine coronal and sagittal reformatted images post intrathecal administ ration of contrast. CLINICAL INFORMATION: pain COMPARISON: None. DLP: 512.[address] scans at [facility] use at least one of these dose optimization techniques: automated e xposure control; mA and/or kV adjustment per patient size (includes targeted exams where dose is matc hed to clinical indication); or iterative reconstruction. FINDINGS: Mild cervical curve. Straightening of the normal cervical lordosis. Prior postoperative changes ACF C 5-C7. Anterior plate and screw fixation with interbody fusion grafts. Bony fusion appears solid with evidence of bony bridging beyond the confines of the graft. Hardware appears intact. No evidence of h ardware loosening. C2-C3: Normal C3-C4: Mild disc osteophytic ridging. Mild facet arthropathy. Mild RIGHT and no LEFT foraminal narrow ing. Spinal canal is patent. C4-C5: Disc osteophyte complex with endplate ridging. Tiny central disc osteophyte protrusion. Mild c entral canal stenosis. Mild facet arthropathy. Mild bilateral bony foraminal narrowing with uncoverte bral joint hypertrophy. C5-C6: Prior postoperative changes ACDF. Mild bony central canal stenosis. Moderate LEFT and mild RIG HT bony foraminal narrowing with uncovertebral joint hypertrophy. C6-C7: Postoperative changes ACDF. Mild LEFT greater than RIGHT bony foraminal narrowing. Mild facet arthropathy. Spinal canal is patent. C7-T1: Mild disc osteophytic ridging. Mild LEFT and no significant RIGHT foraminal narrowing. Spinal canal is patent. Mild facet arthropathy. Visualized posterior fossa structures: Normal. Mastoid air cells are well aerated. Lung apices are well aerated. Normal visualized nasopharynx. Norm al parapharyngeal fat. CT/CT cervical spine w con [id number] IMPRESSION: 1. Straightening of the normal cervical lordosis. 2. Postoperative changes ACDF C5-C7 with interbody fusion grafts. Solid appear ing fusion with evidence of bony bridging beyond the confines of the graft. No evidence of hardware loosening. 3. Tiny central disc osteophyte protrusion C4-C5 with slight effacement of wendy tral thecal sac. Mild central canal stenosis at this level. Mild bony central c anal stenosis C5-C6. 4. Mild to moderate bony foraminal narrowing mainly due to facet arthropathy w ith uncovertebral joint hypertrophy worse at RIGHT C3-C4, LEFT C4-C5, bilateral C5-C6 worse in the LEFT, and bilateral C6-C7 worse in the LEFT.
--- NOTE | 2021-12-02 11:09 | IR_ITS ---
WS: [id number] MYELOGRAM CERVICAL AND LUMBAR SPINE Fluoroscopic guided cervical and lumbar myelogram CLINICAL INFORMATION: back pain, NECK PAIN COMPARISON: None. TECHNIQUE: The procedure, including risks, benefits, and complications, were discussed with the patie nt who agreed to proceed. A timeout was performed to confirm correct patient, procedure, and site. Using sterile technique, the patient was prepped and draped in the usual sterile fashion. After admin istration of local anesthesia using 1% preservative-free lidocaine and using fluoroscopic guidance, a 22-gauge spinal needle was advanced into the subarachnoid space at the L3-L4 level. Subsequently 13 cc of Omnipaque 240 was administered into the thecal sac. The needle was removed and hemostasis was a chieved. Subsequently the table was tilted down and contrast flowed freely into the cervical spine. S pot fluoroscopic images were obtained. FLUOROSCOPIC TIME: 1min [id number] # of spot films: 10 Spot fluoroscopic images demonstrate prior postoperative changes ACDF C5-C7. Fusion appears solid. No rmal C1-C2 articulation. Disc space narrowing worse at C4-C5. Mild lumbar curve. 5 nonrib-bearing lumbar vertebral bodies. Disc space narrowing worse L5-S1 with en dplate degenerative changes. No high-grade central canal stenosis. No acute appearing compression fra ctures. IR/IR myelogram spine cervic/lumb IMPRESSION: 1. Uncomplicated lumbar and cervical myelogram. 2. Please see CT myelogram report for additional detail.
[2021-12-02] MEDS: iohexol 240 mg/mL 50 mL Btl INTRATHECA (12:57)
== END 2021-12-02 11:02 | disposition home or self-care (01) ==
PROVIDERS: PCP Family Medicine; Visit Provider Orthopaedic Surgery
DX: M54.2 Cervicalgia (principal); Z98.1 Arthrodesis status; M54.50 Low back pain, unspecified; M25.78 Osteophyte, vertebrae; M47.816 Spondylosis without myelopathy or radiculopathy, lumbar region; M47.812 Spondylosis without myelopathy or radiculopathy, cervical region
CPT/HCPCS: 62305; 72040; 72120; 72126; 72132

== ENCOUNTER → 2021-12-09 13:20 | Outpatient (BNVA) | payer MEDICARE, SELFPAY | PROVIDERS: PCP Family Medicine; Visit Provider Anesthesiology Pain Medicine | DX: M47.816 Spondylosis without myelopathy or radiculopathy, lumbar region (principal); Z87.891 Personal history of nicotine dependence | CPT/HCPCS: 64493; 64494; 64495; J3490 ==

== ENCOUNTER → 2021-12-21 15:11 | Outpatient (BNVA) | payer MEDICARE, SELFPAY | PROVIDERS: PCP Family Medicine; Visit Provider Orthopaedic Surgery | DX: M47.22 Other spondylosis with radiculopathy, cervical region (principal) | CPT/HCPCS: 99214 ==

== ENCOUNTER → 2021-12-23 09:38 | Outpatient (BNVA) | payer MEDICARE, SELFPAY | PROVIDERS: PCP Family Medicine; Visit Provider Anesthesiology Pain Medicine | DX: M47.816 Spondylosis without myelopathy or radiculopathy, lumbar region (principal); M51.16 Intervertebral disc disorders with radiculopathy, lumbar region; M50.90 Cervical disc disorder, unspecified, unspecified cervical region; M47.812 Spondylosis without myelopathy or radiculopathy, cervical region; M79.601 Pain in right arm; M79.602 Pain in left arm; Z87.891 Personal history of nicotine dependence | CPT/HCPCS: 99214 ==

== ENCOUNTER → 2022-01-10 08:30 | Day surgery (SDC) | payer MEDICARE, SELFPAY ==
--- NOTE | 2022-01-05 10:16 | ECG_ITS ---
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 Measurements Intervals [place] Rate: 63 P: 54 [place]: 168 QRS: -21 QRSD: 92 T: 35 QT: 391 QTc: 402 Interpretive Statements SINUS RHYTHM BORDERLINE LEFT AXIS DEVIATION [QRS AXIS < -20] Compared to ECG 07/27/2021 08:26:15 Sinus bradycardia no longer present Electronically Signed On 01-05-2022 20:58:59 CDT by Alpesh Lund M.D. [id number]
[2022-01-05 11:01] LABS: Basophils # 0.1 10^3/uL (0.0-0.1); Basophils % 1.5 %; Eosinophils # 0.3 10^3/uL (0.0-0.8); Eosinophils % 6.1 %; Hematocrit 44.5 % (42.0-52.0); Hemoglobin 14.5 g/dL (11.7-16.6); Lymphocytes # 1.9 10^3/uL (0.8-4.8); Lymphocytes % 41.4 %; Mean Corpuscular HGB Conc 32.6 g/dL (30.0-36.0); Mean Corpuscular Hemoglobin 27.8 pg (28.0-34.0); Mean Corpuscular Volume 85.4 fl (80-94); Mean Platelet Volume 9.4 fL (7.4-10.4); Monocytes # 0.5 10^3/uL (0.2-0.9); Neutrophils # 1.82 10^3/uL (1.8-7.7); Nucleated Red Blood Cells % 0 %; Platelet Count 291 10^3/cmm (130-400); Red Blood Count 5.21 10^6/uL (4.1-5.3); Red Cell Distribution Width 13.3 % (12.1-15.1); White Blood Count 4.6 10^3/uL (4.0-10.0)
--- NOTE | 2022-01-05 11:13 | ANES.PREANE2 ---
Pre-Anesthetic Assessment Height/Weight: Height 1.83 m Weight 94.347 kg Preop Diagnosis: Facet arthritis, cervical disc disease Operation Date: 01/10/22 08:40 Proposed Procedures p Anterior Cervical Discectomy & Fusion C4/5 [id number](Not Applicable) - Simone Patel DO Familial anesthetic complications: No anesthesia related complications in patient or family. When patient is asleep at home, if startled awake, will be jumpy to violent. Was Beta Beto taken within 24 hours: Yes Was Clonidine taken within 24 hours: N/A Social No alcohol and No tobacco Exam alert, oriented x 3, clear to auscultation bilaterally and regular rate & rhythm Airway Submandibular: within normal limits Cervical ROM: Other (Limited extension ) Mallampati: Class II Dentition: caps Pulmonary Denies COPD, asthma, NAMRATA Was to have polysomnogram, never completed Snores, tired in day, no witnessed apnea, htn, BMI < 35, age > 50, neck WNL, male gender = Stop bang score 5 CV/HEM Hypertension Denies arrythmia , CAD, stents, blood thinners, afib/aflutter METS > 4 Hx of prostatitis BPH Hepatic None reported GI Gastroesophageal Reflux Disease and Hiatal Hernia Metabolic Diabetes Mellitus (Has been told he is DM in past ) and Hyperlipidemia Musc/skel Lower Back Pain and Osteoarthritis/DJD Neuropsych Anxiety Denies stroke, seizure history Anesthetic Plan ASA status: 2 Anesthesia: Anesthesia Evaluation and General Other: We discussed risk and benefits of general anesthesia including PONV, sore throat (sometimes severe), corneal abrasion, positioning and peripheral nerve injuries, life threatening allergic reaction, post operative ICU admission requiring prolonged intubation, aspiration, stroke, heart attack, , and rare incidences of recall. Patient consents to proceed with general anesthesia. We reviewed medication list. Patient will continue metoprolol through day of surgery and clonazepam (as needed). We discussed possible risk of increased bleeding associated with ibuprofen. We discussed that at this institution ibuprofen is typically continued through surgery, however patient will hold 5 days prior to surgery at his choice. Plan GETA, possible arterial line, 2 PIV Risk of > 500 ml blood loss (7ml/kg in children): No Medications/Allergies Home Medications Medication Instructions Recorded Confirmed Last Taken Type alfuzosin 10 mg tablet,extended 10 mg PO QPM 0401/05/22 07/26/21 History release 24 hr (Uroxatral) aspirin 81 mg tablet,delayed 81 mg PO QAM 07/27/21 01/05/22 07/26/21 History release metformin 500 mg tablet,extended 1,000 mg PO QAM 07/27/21 01/05/22 07/26/21 History release 24hr atorvastatin 80 mg tablet 80 mg PO QAM #90 tabs 08/03/21 01/05/22 Unknown Rx metoprolol succinate 25 mg 25 mg PO QAM #90 tabs 08/03/21 01/05/22 Unknown Rx tablet,extended release 24 hr omeprazole 40 mg capsule,delayed 40 mg PO QAM #90 caps 08/03/21 01/05/22 Unknown Rx release ibuprofen 600 mg tablet 600 mg PO Q6H PRN fever or pain 09/22/21 01/05/22 Unknown Rx #30 tabs tadalafil 20 mg tablet 20 mg PO DAILY PRN sexual activity 10/21/21 01/05/22 Unknown Rx #20 tabs clonazepam 1 mg tablet (Klonopin) 1 mg PO BID PRN anxiety 01/05/22 01/05/22 Unknown History Allergies Allergy/AdvReac Type Severity Reaction Status Date / Time bee venom protein (honey bee) Allergy Unknown Verified 12/23/21 09:39 haloperidol [From Haldol] Allergy unknown Verified 12/23/21 09:39 Penicillins Allergy Unknown Verified 12/23/21 09:39 sulfamethoxazole Allergy Unknown Verified 12/23/21 09:39 [From Bactrim] trimethoprim [From Bactrim] Allergy LOGANY-Marianoiste Verified 12/23/21 09:39 r PFSH Anesthesia Medical History Anxiety Bilateral inguinal hernia BPH loc w urin obs/LUTS Dyslipidemia Elevated PSA Epidermoid cyst Erectile dysfunction Essential hypertension GERD (gastroesophageal reflux disease) Prediabetes Prostatitis Surgical History H/O bilateral cataract extraction H/O neck surgery History of appendectomy History of foot surgery History of shoulder surgery Family History Mother , AT AGE 77 Stroke Father , AT AGE 57 Cancer KIDNEY Other CAD (coronary artery disease) Social History Smoking and tobacco status: former smoker Alcohol intake: current Alcohol intake frequency: holidays/special occasions only Marital status: Current occupational status: retired History of recent travel: No Data Anesthesia : 01/05/22 10:42 01/05/22 10:42 Short CBC 01/05/22 Range/Units 10:42 WBC 4.6 (4.0-10.0) 10^3/uL Hgb 14.5 (11.7-16.6) g/dL Hct 44.5 (42.0-52.0) % MCV 85.4 (80-94) fl Plt Count 291 (130-400) 10^3/cmm Neut % (Auto) 40.0 % Neut # (Auto) 1.82 (1.8-7.7) 10^3/uL Cardiac Studies: Sestamibi Stress Test (Cardiology) 10/25/21 Holter Monitor 09/11/21
[2022-01-05 11:19] LABS: Anion Gap 14.2 (5-19); Blood Urea Nitrogen 13 mg/dL (8-23); Calcium 9.3 mg/dL (8.5-10.5); Carbon Dioxide 24 mmol/L (22-29); Chloride 102 mmol/L (98-107); Glomerular Filtration Rate 74.8 mL/min (90-130); Glucose 101 mg/dL (65-115); Osmolality Calculated 282 mOsm/kg (285-295); Potassium 4.2 mmol/L (3.5-5.1); Sodium 136 mmol/L (136-145)
[2022-01-10] VITALS (20 sets, daily range): BP systolic 136–185; BP diastolic 75–108; PULSE 48–63; RESP 10–18; TEMP 36.1–36.4; O2SAT 93–100
--- NOTE | 2022-01-10 | SCC_ITS ---
Procedure done: 1. Anterior diskectomy C4/5 2. Insertion of cage C4/5 3. Instrumentation with screws from C4 to C5 4. Use of allograft 7.4 seconds of fluoroscopic guidance, for a cumulative dose of 05 mGy, was provided to Dr. Patel by the radiology department. C-arm images of the cervical spine were saved for the patient's permanent record. [facility]
--- NOTE | 2022-01-10 | XR_ITS ---
WS: [id number] INTRAOPERATIVE TECHNIQUE: 3 Spot fluoroscopic images for intraoperative purposes. FLUOROSCOPY TIME: 7.4 seconds CLINICAL INFORMATION: ACDF C4-5 COMPARISON: None. FINDINGS: Intraoperative changes ACDF C4-C5. Prior ACDF C5-C7. Endotracheal tube. XR/XR cervical spine 3V* [id number] IMPRESSION: Images obtained for intraoperative purposes.
[2022-01-10 09:09] LABS: Glucose Point of Care 106 mg/dL (70-110)
[2022-01-10] MEDS: sodium chloride 0.9% 1,000 ML 30 ML IV (09:20)
--- NOTE | 2022-01-10 09:45 | P.ANESUD_ITS ---
Pre-Anesthetic Update Pre-Anesthetic Assessment: Date of Surgery/Procedure: 01/10/22 Preop Amisha gnosis: Cervical spondylosis with radiculopathy Proposed Procedure: Operation Date: 01/10/22 09:50 Proposed Procedures p Anterior Cervical Discectomy & Fusion C4/5 [id number](Not Applicable) - Simone Patel, DO Any changes to Pre-Anesthetic Assessment?: No Last Intake: Intake Last Liquid Date 01/09/22 Last Liquid Time 20:00 Last Solid Date 01/09/22 Last Solid Time 20:00 Vitals: Temperature 97.6 F 01/10/22 08:51 Temperature Source Temporal Artery S can 01/10/22 08:51 Pulse Rate 63 01/10/22 08:51 Respiratory Rate 18 01/10/22 08:51 Blood Pressure 146/98 01/10/22 08:51 Blood Pressure Fabiola n 114 01/10/22 08:51 Pulse Oximetry 99 01/10/22 08:51 Oxygen Delivery Me thod 01/10/22 08:52 Exam: Pre-Anes Outpt Exam: alert, oriented x 3, clear to auscultation bilaterally and regular rate & rhythm Cardiac Studies: Sestamibi Stress Test (Cardiology) 10/25 Holter Monitor 09/11/21
--- NOTE | 2022-01-10 11:08 | W.PM.OPSUD ---
Surgery/Procedure H&P Update DATE OF PROCEDURE: January 10, 2022 DATE H&P PERFORMED: 12/21/21 H&P UPDATE INFORMATION: I have reviewed H&P completed within last 30 days, I have examined patient prior to procedure and No changes to prior documentation PREOP DIAGNOSIS: Cervical spondylosis with radiculopathy PLANNED PROCEDURE: Operation Date: 01/10/22 09:50 Proposed Procedures p Anterior Cervical Discectomy & Fusion C4/5 [id number](Not Applicable) - Simone Patel DO
[2022-01-10] MEDS: clindamycin 900 MG/50 ML PREMIX 100 MG IV (12:11)
--- NOTE | 2022-01-10 13:29 | P.OP_ITS ---
Operative Report Date of procedure: January 10, 2022 Pre-op diagnosis: Preop Diagnosis Cervical spondylosis with radiculopathy Post-op diagnosis: same Procedure done: 1. Anterior diskectomy C4/5 2. Insertion of cage C4/5 3. Instrumentation with screws from C4 to C5 4. Use of allograft Surgeon: Simone Patel Trouble Locater: Christos Brothers Trouble Locater: The certified surgical assistant, Christos Brothers, PAC was needed for his expertise under the microscope. He was important and necessary throughout the procedure to complete in a safe and timely manner. He assisted with patient positioning prepping and draping tissue retraction suctioning of the operative field protection of the dural sac and tissue closure Estimated blood loss (mL): 5 Procedure: 1. Anterior diskectomy C4/5 2. Insertion of cage C4/5 3. Instrumentation with screws from C4 to C5 4. Use of allograft The patient was taken to the operating room, where he underwent general end otracheal anesthesia without complications. He was then positioned supine on the operating table, and all areas of impingement were well padded. The arms were carefully padded and tucked at his sides. A roll was placed between the shoulder blades.. An x-ray was done to determine the appropriate level for the skin incision. The entire neck was then sterilely prepped and draped in the usual fashion. Neuromonitoring was attached prior to prepping. A transverse skin incision was made and carried down to the platysma muscle. This was then split in line with its fibers. Blunt dissection was carried down medial to the carotid sheath and lateral to the trachea and esophagus until the anterior cervical spine was visualized. A needle was placed into a disc and an x-ray was done to determine its location. The longus colli muscles were then elevated bilaterally with the electrocautery unit. Self-retaining retractors were placed deep to the longus colli muscle. Attention was brought to the C4/5 level that was confirmed on x-ray and that it was above the previous plate placement. A caspar pin was placed into the C4 vertebrae and the C5 vertebrae. The disk space was then distracted. The micro scope was then brought in. A radical anterior discectomies were performed at C4/5. This included complete removal of the anterior annulus, nucleus, and posterior annulus. The posterior longitudinal ligament was removed as were the posterior osteophytes. Foraminotomies were then accomplished bilaterally. This was done using a high speed erwin, kerrison rongeurs and curretes Once all of this was accomplished, the curved currette was used to check for any residual compression. The central canal was wide open as were the foramen. A high-speed bur was used to remove the cartilaginous endplates above and below the interspace. Bleeding cancellous bone was exposed. The disc space were measured and appropriate size cage were placed sterilely onto the field. Allograft graft was packed into the cages. The cage was then placed and there was good juxtaposition against the bleeding decorticated surfaces and good distraction of each interspace. Attention was brought to the next interspace. The Shipman pins were removed. Bone wax was used to prevent any bleeding from occurring at the pin sites. The awl was used to get placement of where the screws were going to C4 and C5 superiorly and inferiorly. Two screws were then placed into each of the vertebral bodies at C4 and C5. There was excellent purchase. A final x-ray was done confirming good position of the hardware and Cages. The locking screws were then applied, also with excellent purchase. Following a final copious irrigation, there was good hemostasis and no dural leaks. The carotid pulse was strong. The wounds were then closed in layers using 2-0 Vicryl suture for the platysma muscle, 2-0 Vicryl suture for the subcutaneous tissue, and 4-0 monocryl suture in a subcuticular skin closure. Glue was placed followed by application of a sterile dressing. The drain was hooked to bulb suction. A soft collar was applied. The patient was then carefully returned to the supine position on his hospital bed where he was reversed and extubated and taken to the recovery room having tolerated the procedure well.
[2022-01-10] MEDS: fentaNYL 50 mcg/mL INJ 2mL IVP ×2 (14:14→14:36)
[2022-01-10] MEDS: ondansetron 2 mg/ML SDV 2 mL 4 MG IVP (14:26)
[2022-01-10] MEDS: HYDROcodone-acetaminophen 5-325 mg Tablet 2 TAB PO (15:52)
--- NOTE | 2022-01-10 19:50 | ANE.PACU2 ---
Inpatient post-anesthesia follow up: Airway intact: Yes Vital signs: Temperature 97.3 F Pulse Rate 56 Respiratory Rate 17 Blood Pressure 167/85 Pulse Oximetry 95 Oxygen Delivery Me thod Room Air Oxygen Flow Rate 4 Fraction of Inspir ed Oxygen Hydration adequate: Yes Nausea and vomiting: No Pain level: 1 Mental status: Baseline
== END | disposition home or self-care (01) ==
PROVIDERS: Anesthesiology; PCP Family Medicine; Visit Provider Orthopaedic Surgery
PROC: 0RB30ZZ Excision of Cervical Vertebral Disc, Open Approach (ICD-10-PCS; CPT 22551; principal; 2022-01-10 09:40)
DX: M47.22 Other spondylosis with radiculopathy, cervical region (principal); E11.9 Type 2 diabetes mellitus without complications; E78.5 Hyperlipidemia, unspecified; K21.9 Gastro-esophageal reflux disease without esophagitis; F41.9 Anxiety disorder, unspecified; N40.1 Benign prostatic hyperplasia with lower urinary tract symptoms; N13.8 Other obstructive and reflux uropathy; I10 Essential (primary) hypertension; Z87.891 Personal history of nicotine dependence; Z79.82 Long term (current) use of aspirin
CPT/HCPCS: 20930; 22551; 22845; 22853; 36416; 72040; 76000; 80048; 82962; 85025; 93005; C1713; C9359; J0330; J1100; J1170; J2250; J2405; J2704; J3010; J3490; J7030; L0174

== ENCOUNTER → 2022-01-20 08:09 | Outpatient (BNVA) | payer MEDICARE, SELFPAY | PROVIDERS: PCP Family Medicine; Visit Provider Orthopaedic Surgery | DX: Z47.89 Encounter for other orthopedic aftercare (principal); Z98.1 Arthrodesis status | CPT/HCPCS: 99024 ==

== ENCOUNTER → 2022-02-17 08:21 | Outpatient (BNVA) | payer MEDICARE, SELFPAY | PROVIDERS: PCP Family Medicine; Visit Provider Orthopaedic Surgery | DX: Z47.89 Encounter for other orthopedic aftercare (principal); Z98.1 Arthrodesis status | CPT/HCPCS: 72040; 99024 ==

== ENCOUNTER → 2022-03-02 14:35 | Outpatient (BNVA) | payer MEDICARE, SELFPAY | PROVIDERS: PCP Family Medicine; Visit Provider Anesthesiology Pain Medicine | DX: M47.816 Spondylosis without myelopathy or radiculopathy, lumbar region (principal); M51.16 Intervertebral disc disorders with radiculopathy, lumbar region; M50.90 Cervical disc disorder, unspecified, unspecified cervical region; M47.812 Spondylosis without myelopathy or radiculopathy, cervical region; M79.605 Pain in left leg; M79.604 Pain in right leg; Z87.891 Personal history of nicotine dependence | CPT/HCPCS: 99214 ==

== ENCOUNTER → 2022-03-10 09:05 | Outpatient (BNVA) | payer MEDICARE, SELFPAY | PROVIDERS: PCP Family Medicine; Visit Provider Family Medicine | DX: E11.9 Type 2 diabetes mellitus without complications (principal); L29.9 Pruritus, unspecified | CPT/HCPCS: 80053; 80061; 83036 ==

== ENCOUNTER → 2022-03-31 07:59 | Outpatient (BNVA) | payer MEDICARE, SELFPAY | PROVIDERS: PCP Family Medicine; Visit Provider Physician Assistant | DX: M47.22 Other spondylosis with radiculopathy, cervical region (principal) | CPT/HCPCS: 72040; 99024 ==

== ENCOUNTER → 2022-06-28 08:24 | Outpatient (BNVA) | payer MEDICARE, SELFPAY | PROVIDERS: PCP Family Medicine; Visit Provider Orthopaedic Surgery | DX: Z47.89 Encounter for other orthopedic aftercare (principal); Z98.1 Arthrodesis status | CPT/HCPCS: 72040; 99214 ==

== ENCOUNTER → 2022-07-01 11:12 | Outpatient (BNVA) | payer MEDICARE, SELFPAY | PROVIDERS: Visit Provider Registered Nurse Neonatal Intensive Care | DX: R30.0 Dysuria (principal); N41.9 Inflammatory disease of prostate, unspecified | CPT/HCPCS: 81000 ==

== ENCOUNTER 2022-07-07 11:27 | Outpatient (RCR) | payer MEDICARE, SELFPAY | END 2022-07-31 23:59 | disposition home or self-care (01) | LOC: SPT 11:27 | PROVIDERS: PCP Family Medicine; Visit Provider Orthopaedic Surgery | DX: Z98.1 Arthrodesis status (principal) | CPT/HCPCS: 97110; 97161 ==

== ENCOUNTER 2022-08-01 06:00 | Outpatient (RCR) | payer MEDICARE, SELFPAY | END 2022-08-31 23:59 | disposition home or self-care (01) | LOC: SPT 06:00 | PROVIDERS: PCP Family Medicine; Visit Provider Orthopaedic Surgery | DX: Z98.1 Arthrodesis status (principal) | CPT/HCPCS: 97110 ==

== ENCOUNTER → 2022-08-09 16:16 | Outpatient (BNVA) | payer MEDICARE, SELFPAY | PROVIDERS: PCP Family Medicine; Visit Provider Orthopaedic Surgery | DX: Z98.890 Other specified postprocedural states (principal); Z98.1 Arthrodesis status | CPT/HCPCS: 72040; 99213 ==

== ENCOUNTER → 2022-09-08 09:41 | Outpatient (BNVA) | payer MEDICARE, SELFPAY | PROVIDERS: PCP Family Medicine; Visit Provider Family Medicine | DX: I10 Essential (primary) hypertension (principal); R97.20 Elevated prostate specific antigen [PSA]; R73.03 Prediabetes | CPT/HCPCS: 80053; 82043; 83036; 84153; 85025 ==

== ENCOUNTER → 2022-09-28 10:55 | Outpatient (BNVA) | payer MEDICARE, SELFPAY | PROVIDERS: PCP Family Medicine; Visit Provider Internal Medicine Cardiovascular Disease | DX: R07.89 Other chest pain (principal); I10 Essential (primary) hypertension; E78.5 Hyperlipidemia, unspecified; K21.9 Gastro-esophageal reflux disease without esophagitis; Z87.891 Personal history of nicotine dependence | CPT/HCPCS: 99204 ==

== ENCOUNTER 2022-10-06 14:17 | Outpatient (CLI) | payer MEDICARE, SELFPAY ==
[2022-10-06 15:14] LABS: Basophils # 0.1 10^3/uL (0.0-0.1); Basophils % 1.5 %; Eosinophils # 0.3 10^3/uL (0.0-0.8); Eosinophils % 5.7 %; Hematocrit 44.9 % (42.0-52.0); Hemoglobin 14.7 g/dL (11.7-16.6); Lymphocytes # 2.2 10^3/uL (0.8-4.8); Lymphocytes % 40.9 %; Mean Corpuscular HGB Conc 32.7 g/dL (30.0-36.0); Mean Corpuscular Hemoglobin 27.7 pg (28.0-34.0); Mean Corpuscular Volume 84.7 fl (80-94); Mean Platelet Volume 9.9 fL (7.4-10.4); Monocytes # 0.5 10^3/uL (0.2-0.9); Monocytes % 9.8 %; Neutrophils # 2.28 10^3/uL (1.8-7.7); Neutrophils % 41.9 %; Nucleated Red Blood Cells % 0 %; Platelet Count 325 10^3/cmm (130-400); White Blood Count 5.4 10^3/uL (4.0-10.0)
[2022-10-06 15:32] LABS: INR 1.03 (0.83-1.21); Prothrombin Time (Patient) 13.8 Seconds (12.0-15.1)
[2022-10-06 15:36] LABS: Blood Urea Nitrogen 15 mg/dL (8-23); Calcium 9.2 mg/dL (8.5-10.5); Carbon Dioxide 23 mmol/L (22-29); Chloride 104 mmol/L (98-107); Glomerular Filtration Rate 74.5 mL/min (90-130); Glucose 96 mg/dL (65-115); Osmolality Calculated 289 mOsm/kg (285-295); Sodium 139 mmol/L (136-145)
== END 2022-10-06 14:18 | disposition home or self-care (01) ==
PROVIDERS: PCP Family Medicine; Visit Provider Internal Medicine Cardiovascular Disease
DX: R07.9 Chest pain, unspecified (principal)
CPT/HCPCS: 36415; 80048; 85025; 85610

== ENCOUNTER 2022-10-18 07:35 | Outpatient (CLI) | payer MEDICARE, SELFPAY ==
[2022-10-17 09:12] VITALS: BMI 29.1
[2022-10-18] VITALS (23 sets, daily range): BP systolic 112–158; BP diastolic 74–88; PULSE 54–98; RESP 9–27; TEMP 36.7; O2SAT 93–99; BMI 29.1
[2022-10-18] MEDS: diphenhydrAMINE 50 mg Capsule PO (08:00)
[2022-10-18 08:10] LABS: Basophils # 0.1 10^3/uL (0.0-0.1); Basophils % 1.1 %; Eosinophils # 0.3 10^3/uL (0.0-0.8); Eosinophils % 5.3 %; Hematocrit 45.1 % (42.0-52.0); Hemoglobin 14.7 g/dL (11.7-16.6); Lymphocytes # 2.3 10^3/uL (0.8-4.8); Lymphocytes % 43.7 %; Mean Corpuscular HGB Conc 32.6 g/dL (30.0-36.0); Mean Corpuscular Hemoglobin 27.8 pg (28.0-34.0); Mean Corpuscular Volume 85.3 fl (80-94); Mean Platelet Volume 9.9 fL (7.4-10.4); Monocytes # 0.6 10^3/uL (0.2-0.9); Monocytes % 11.5 %; Neutrophils # 2.02 10^3/uL (1.8-7.7); Neutrophils % 38.2 %; Nucleated Red Blood Cells % 0 %; Platelet Count 276 10^3/cmm (130-400); Red Blood Count 5.29 10^6/uL (4.1-5.3); Red Cell Distribution Width 13.1 % (12.1-15.1); White Blood Count 5.3 10^3/uL (4.0-10.0)
[2022-10-18] MEDS: clopidogrel 300 mg Tablet PO (08:26)
--- NOTE | 2022-10-18 08:30 | XACV_ITS ---
Exam Room: 2 Ht: 183 cm Wt: 98 kg BSA: 2.25 m2 Gender: Male : 1955 Exam Priority: Routine Procedure(s): Procedure Description: Diagnostic procedure Procedure Description: Left Heart Catheterization Procedure Description: Coronary Angiography Diagnostic Cath Status: Elective Diagnostic Findings * Coronary angiography shows right dominance. * 70-year-old man with past medical history of hypertension, type 2 diabetes mellitus and worsening symptoms of exertional chest discomfort and shortness of breath with palpitation. Patient had a normal stress test about a year ago. I decided to proceed with left heart catheterization given his newly worsening symptoms. * Normal caliber left main artery without any stenosis. * Medium caliber left anterior descending artery without significant stenosis. * Medium caliber ramus artery without stenosis. * Left circumflex is a small artery without any major obtuse marginal branches. * P * roximal circumflex artery with short segment 40 to 50% stenosis. * Dominant medium caliber right coronary artery without any significant stenosis. While engaging right coronary artery, catheter became deep seated and induced spasm leading to ventricular fibrillation. 1 shock was delivered with mormonism of sinus rhythm.. Conclusions 1. Proximal circumflex artery mild 40 to 50% stenosis. 2. Patient had ventricular fibrillation while engaging right coronary artery and was defibrillated once. There were no postprocedure complications. Recommendations * Continue current medical management and risk factor modification. * Statin and aspirin 81mg lifelong, if tolerated. LV EDP: 22 mmHg Left Ventriculography Findings: * Left Ventriculogram not performed to minimize contrast use. Pressures Phase:Rest AO : 120 / 65 ( 88 ) @ 10:13:00 AM 108 / 70 ( 89 ) @ 10:16:00 AM 130 / 70 ( 95 ) @ 10:21:00 AM 26 / 21 ( 23 ) @ 10:23:00 AM 188 / 106 ( 133 ) @ 10:25:00 AM 188 / 93 ( 136 ) @ 10:25:00 AM 162 / 79 ( 111 ) @ 10:28:00 AM 151 / 82 ( 115 ) @ 10:30:00 AM 152 / 82 ( 115 ) @ 10:30:00 AM 111 / 81 ( 96 ) @ 10:35:00 AM LV : 150 / 3 / 22 @ 10:29:00 AM 150 / -2 / 20 @ 10:30:00 AM Valves Phase:DefaultPhase AV : 0.0 @ 10:00:56 AM 0.0 @ 10:00:56 AM Clinical Evaluation EBL: 5mL-10mL Procedural Details Procedure Consent Obtained. Admit Source: Out Patient. Pre-Procedure Time Out. Identified patient by full name and date of as verbalized by the patient/guarantor. Does the consent match the physician's order: Yes. Accurate & Complete Informed Consent: Yes. Inpatient/Outpatient History & Physical on Chart: Yes. If H&P is completed, is and addenduem needed: No; If yes, is the addendum complete: N/a. Visualize and Verify Site with Patient/Guarantor: N/A. Relevant Radiology Images available: Yes. The risks, benefits, and alternatives of sedation and/or procedure were discussed by physician. The patient agrees to continue. Procedure started. [facility] Clinical Fraility Score: 3: Managing Well. Manager Meat Indications: Worsening Angina. Chest Pain Symptom Assessment: Atypical Angina. Correct patient, site and procedure confirmed by cath team. Current diagnosis: Chest Pain. PERRLA. Strong, equal hand derivatives trader bilaterally. Lungs clear x 5 lobes. IV Site on Arrival: 20 gauge in the left anticubital. IV Fluids: 0.9% NaCl at KVO. 0 mL infused prior to laborer operator. Pre Procedural Pulses: bilateral radial was 3+. Pre Procedural Pulses: bilateral posterior tibial was 2+. Pre Procedural Pulses: bilateral dorsalis pedis was 2+. Oxygen started at 2liters/min via nasal canula. right groin was prepped with chloroprep then draped in the usual sterile fashion. right radial was prepped with chloroprep then draped in the usual sterile fashion. Physician notified. Baseline sample Acquired. HR: 66 BPM. Baseline sample Acquired. HR: 60 BPM. Physician arrived. Physician scrubbed in. Immediate Pre-Procedure Time Out. Correct Patient: Yes; Correct Procedure: Yes; Correct Site: Yes; Correct Patient Position: Yes; Correct Supplies: Yes; Dried Flammable Prep: Yes; Blood Products Available: N/A;. Lidocaine 1% infiltrated to the right radial. An attempt to gain access to the right radial artery was unsuccessful. Manual pressure was held as needed to stop the bleeding. A 6 greek TIG catheter in over wire. Arterial access obtained. Multiple views taken of left coronary artery. Catheter removed over the exchange wire. A 6 greek JR4 catheter in over wire. Multiple views taken of right coronary artery. AP pads on, patient in vfib, shock delivered. Catheter removed over the exchange wire. A 5 greek JR4 catheter in over wire. EDP Sample taken: LV 150/3,22; HR: 61 BPM; SpO2: 96%. Pullback taken: LV 150/-3,20; AO 151/82(115); Mean: , Peak to Peak: 0mmHg, SEP: ; HR: 72 BPM; SpO2: 94%. Multiple views taken of right coronary artery. Catheter removed over the exchange wire. A TR Band was successful obtaining hemostatsis at the Right Radial artery insertion site. Physician scrubbed out. Post Procedure: Pulses reassessed and unchanged. PERRLA. Strong, equal hand derivatives trader bilaterally. No VTE prophylaxis required. Medication's Wasted: Lidocaine 1% = 2 mL. Medication's Wasted: Nitro = 49.6 mg. Medication's Wasted: Other = Versed 1 mg. Medication's Wasted: Other = Fentanyl 100 mcg. Total IV fluids: 50 mL. Estimated blood loss: 5mL-10mL. Responsiveness - Normal response to verbal stimuli; alert and oriented, PERRLA. Airway - Unaffected, no intervention required; spontaneous ventilation. Circulation: W/N/L, pulses unchanged. Nausea/Vomiting: No. Procedure completed. Patient transferred by wheelchair to CPRU. Vital chart was stopped. Post-op diagnosis: non-obstructive CAD. Complications: none. Access Site Site: Right Radial artery Sheath Size: 6 Fr Hemostasis Method: TR Band Hemostasis Success: Successful Procedure Medications Start: 8:57 AM Stop: 8:57 AM Medication: Versed Amount: 1 mg Route: I.V. Start: 8:57 AM Stop: 8:57 AM Medication: Fentanyl Amount: 50 mcg Start: 9:00 AM Stop: 9:00 AM Medication: Versed Amount: 1 mg Route: I.V. Start: 9:02 AM Stop: 9:02 AM Medication: Fentanyl Amount: 50 mcg Route: I.V. Start: 9:04 AM Stop: 9:04 AM Medication: Versed Amount: 1 mg Route: I.V. Start: 9:10 AM Stop: 9:10 AM Medication: Nitrogylcerin Amount: 200 mcg Route: I.A. Start: 9:11 AM Stop: 9:11 AM Medication: Versed Amount: 1 mg Route: I.V. Start: 9:13 AM Stop: 9:13 AM Medication: Heparin Amount: 5000 units Route: I.V. Start: 9:27 AM Stop: 9:27 AM Medication: Versed Amount: 1 mg Route: I.V. Start: 9:36 AM Stop: 9:36 AM Medication: Nitrogylcerin Amount: 200 mcg Route: I.A. I, the attending physician, have reviewed and verified all procedure medications. Yes, all medications given per verbal order History/Risk Factors Hypertension: Yes Dyslipidemia: Yes Peripheral Arterial Disease (PAD): No Myocardial Infarction (NH): No Obesity: No Renal Disease: No Tobacco Use: Former Prior Interventions PCI: No CABG: No Valve Surgery: No Report Signatures Finalized by Louise Metzger MD on 10/26/2022 12:45 PM
[2022-10-18 08:32] LABS: Anion Gap 13.3 (5-19); Blood Urea Nitrogen 13 mg/dL (8-23); Calcium 9.4 mg/dL (8.5-10.5); Carbon Dioxide 25 mmol/L (22-29); Chloride 106 mmol/L (98-107); Glomerular Filtration Rate 66.8 mL/min (90-130); Glucose 126 mg/dL (65-115); Osmolality Calculated 292 mOsm/kg (285-295); Potassium 4.3 mmol/L (3.5-5.1); Sodium 140 mmol/L (136-145)
--- NOTE | 2022-10-18 08:56 | P.HPUD_ITS ---
Surgery/Procedure H&P Update DATE OF PROCEDURE: October 18, 2022 DATE H&P PERFORMED: 09/28/22 H&P UPDATE INFORMATION: I have reviewed H&P completed within last 30 days, I have examined patient prior to procedure and No changes to prior documentation PREOP DIAGNOSIS: Worsening SOB, CP PRIMARY INDICATION FOR PROCEDURE: Worsening SOB, CP PLANNED PROCEDURE: Operation Date: 10/18/22 08:30 Proposed Procedures p [facility] w/wo 15780,R07.9(Left) - Louise Metzger MD PATIENT REASSESSED PRIOR TO SEDATION, WITH NO CHANGE NOTED: Yes PHYSICAL EXAM: alert, oriented x 3, clear to auscultation bilaterally and regular rate & rhythm AIRWAY EVAL/ANESTHESIA PLAN: normal airway, ASA III, Monitored Anesthesia, Local Anesthesia and Risks, benefits & alternatives of sedation and/or procedure discussed
[2022-10-18 10:03] LABS: Glucose Point of Care 116 mg/dL (70-110)
--- NOTE | 2022-10-18 10:37 | PC.NURSE ---
Pt transferred to CSU 111-1 via w/c. Pt alert and oriented. Denies pain at this time. Right wrist has TR band in place. Site is asymptomatic. No signs of bleeding or hematoma at this time. Report called to floor by Eric El RN.
[2022-10-18] MEDS: sodium chloride 0.9% 1,000 ML 100 ML IV (10:40)
--- NOTE | 2022-10-18 15:10 | ECG_ITS ---
[facility] Test Date: 2022-10-18 Pat Name: Chapo Hope Department: Room: 111 Gender: Male Safety Attendant: : 1955 Requested By: Louise Metzger Order Number: [id number] Shilo MD: Louise Metzger M.D. Measurements Intervals Drake Rate: 58 P: -71 HI: 131 QRS: -20 QRSD: 98 T: 12 QT: 393 QTc: 388 Interpretive Statements JUNCTIONAL BRADYCARDIA ABNORMAL RHYTHM ECG Compared to ECG 01/05/2022 10:20:09 Sinus rhythm no longer present Electronically Signed On 10-18-2022 20:15:34 CDT by Louise Metzger M.D. [id number]
--- NOTE | 2022-10-18 16:11 | PC.NURSE ---
Pt d/c home with family; pt escorted by SALSA DANCE INSTRUCTOR to POV; D/C instructions reviewed with pt along with medication changes with understanding noted. Pt tolerated procedure without difficulty noted.
== END 2022-10-18 16:10 | disposition home or self-care (01) ==
LOC: CCL 07:41 → CSU 12:26
PROVIDERS: PCP Family Medicine; Visit Provider Internal Medicine Cardiovascular Disease
DX: R06.02 Shortness of breath (principal); I10 Essential (primary) hypertension; E11.9 Type 2 diabetes mellitus without complications; R00.2 Palpitations; R07.9 Chest pain, unspecified; I97.790 Other intraoperative cardiac functional disturbances during cardiac surgery; Y84.0 Cardiac catheterization as the cause of abnormal reaction of the patient, or of later complication, without mention of misadventure at the time of the procedure; I49.01 Ventricular fibrillation; E78.5 Hyperlipidemia, unspecified; Z87.891 Personal history of nicotine dependence
CPT/HCPCS: 36415; 36416; 80048; 82962; 85025; 93005; 93458; 96361; 96365; 99152; 99153; C1769; C1887; C1894; G0378; J1644; J2250; J3010; J3490; J7030; Q0163; Q9967

== ENCOUNTER → 2022-10-25 09:09 | Outpatient (BNVA) | payer MEDICARE, SELFPAY | PROVIDERS: PCP Family Medicine; Visit Provider Nurse Practitioner Family | DX: R06.02 Shortness of breath (principal) | CPT/HCPCS: 36415; 80048; 99214 ==

== ENCOUNTER → 2022-11-15 14:23 | Outpatient (BNVA) | payer MEDICARE, SELFPAY | PROVIDERS: PCP Family Medicine; Visit Provider Orthopaedic Surgery | DX: Z47.89 Encounter for other orthopedic aftercare (principal); Z98.1 Arthrodesis status | CPT/HCPCS: 99213 ==

== ENCOUNTER → 2022-12-26 15:47 | Outpatient (BNVA) | payer MEDICARE, SELFPAY | PROVIDERS: PCP Family Medicine; Visit Provider Nurse Practitioner Family | DX: I10 Essential (primary) hypertension (principal); I25.10 Atherosclerotic heart disease of native coronary artery without angina pectoris; Z87.891 Personal history of nicotine dependence | CPT/HCPCS: 99214 ==

== ENCOUNTER → 2023-02-01 10:56 | Outpatient (BNVA) | payer MEDICARE, SELFPAY | PROVIDERS: PCP Family Medicine; Visit Provider Internal Medicine Cardiovascular Disease | DX: I10 Essential (primary) hypertension (principal); I25.10 Atherosclerotic heart disease of native coronary artery without angina pectoris; Z87.891 Personal history of nicotine dependence | CPT/HCPCS: 99214 ==

== ENCOUNTER → 2023-03-06 11:20 | Outpatient (BNVA) | payer MEDICARE, SELFPAY | PROVIDERS: PCP Family Medicine; Visit Provider Family Medicine | DX: E11.9 Type 2 diabetes mellitus without complications (principal); Z13.6 Encounter for screening for cardiovascular disorders | CPT/HCPCS: 80053; 80061; 82043; 83036; 86803 ==

== ENCOUNTER → 2023-08-09 10:41 | Outpatient (BNVA) | payer MEDICARE, SELFPAY | PROVIDERS: PCP Family Medicine; Visit Provider Internal Medicine Cardiovascular Disease | DX: I25.118 Atherosclerotic heart disease of native coronary artery with other forms of angina pectoris (principal); I10 Essential (primary) hypertension; E78.5 Hyperlipidemia, unspecified; R00.2 Palpitations; E11.9 Type 2 diabetes mellitus without complications; Z87.891 Personal history of nicotine dependence; Z79.84 Long term (current) use of oral hypoglycemic drugs | CPT/HCPCS: 99214 ==

== ENCOUNTER → 2023-08-16 15:10 | Outpatient (BNVA) | payer MEDICARE, SELFPAY | PROVIDERS: PCP Family Medicine; Visit Provider Family Medicine | DX: R97.20 Elevated prostate specific antigen [PSA] (principal) | CPT/HCPCS: 84153 ==

== ENCOUNTER → 2023-09-04 14:12 | Outpatient (BNVA) | payer MEDICARE, SELFPAY | PROVIDERS: PCP Family Medicine; Visit Provider Family Medicine | DX: E11.9 Type 2 diabetes mellitus without complications (principal) | CPT/HCPCS: 80053; 83036; 85025 ==

== ENCOUNTER → 2023-12-19 10:03 | Outpatient (BNVA) | payer MEDICARE, SELFPAY | PROVIDERS: PCP Family Medicine Adult Medicine; Visit Provider Family Medicine | DX: N40.1 Benign prostatic hyperplasia with lower urinary tract symptoms (principal); Z12.5 Encounter for screening for malignant neoplasm of prostate | CPT/HCPCS: 84153 ==

== ENCOUNTER → 2024-02-14 12:04 | Outpatient (BNVA) | payer MEDICARE, SELFPAY | PROVIDERS: PCP Family Medicine; Visit Provider Internal Medicine Cardiovascular Disease | DX: R07.9 Chest pain, unspecified (principal); I25.118 Atherosclerotic heart disease of native coronary artery with other forms of angina pectoris; I10 Essential (primary) hypertension; E11.9 Type 2 diabetes mellitus without complications | CPT/HCPCS: 93005; 99214 ==

== ENCOUNTER → 2024-04-22 08:57 | Outpatient (BNVA) | payer MEDICARE, SELFPAY | PROVIDERS: PCP Family Medicine; Visit Provider Anesthesiology Pain Medicine | DX: M47.816 Spondylosis without myelopathy or radiculopathy, lumbar region; M51.16 Intervertebral disc disorders with radiculopathy, lumbar region; M50.90 Cervical disc disorder, unspecified, unspecified cervical region; M47.812 Spondylosis without myelopathy or radiculopathy, cervical region | CPT/HCPCS: 72040; 99205 ==

== ENCOUNTER → 2024-05-07 08:23 | Outpatient (BNVA) | payer MEDICARE, SELFPAY | PROVIDERS: PCP Family Medicine; Referring Provider Family Medicine; Visit Provider Nurse Practitioner Family | DX: L23.9 Allergic contact dermatitis, unspecified cause (principal); L21.8 Other seborrheic dermatitis; D22.39 Melanocytic nevi of other parts of face; L81.4 Other melanin hyperpigmentation; L57.0 Actinic keratosis | CPT/HCPCS: 17000; 99204 ==

== ENCOUNTER → 2024-05-27 09:54 | Outpatient (BNVA) | payer MEDICARE, SELFPAY | PROVIDERS: PCP Family Medicine; Visit Provider Anesthesiology Pain Medicine | DX: M47.816 Spondylosis without myelopathy or radiculopathy, lumbar region (principal); M51.16 Intervertebral disc disorders with radiculopathy, lumbar region; M50.90 Cervical disc disorder, unspecified, unspecified cervical region; M47.812 Spondylosis without myelopathy or radiculopathy, cervical region | CPT/HCPCS: 99214 ==

== ENCOUNTER → 2024-05-29 14:43 | Outpatient (BNVA) | payer MEDICARE, SELFPAY | PROVIDERS: PCP Family Medicine; Visit Provider Anesthesiology Pain Medicine | DX: M47.816 Spondylosis without myelopathy or radiculopathy, lumbar region (principal); Z01.818 Encounter for other preprocedural examination | CPT/HCPCS: 36416; 64493; 64494; 64495; 82962; J1010; J3490 ==

== ENCOUNTER → 2024-06-04 07:49 | Outpatient (BNVA) | payer MEDICARE, SELFPAY | PROVIDERS: PCP Family Medicine; Visit Provider Nurse Practitioner Family | DX: L23.9 Allergic contact dermatitis, unspecified cause (principal); L21.8 Other seborrheic dermatitis | CPT/HCPCS: 99214 ==

== ENCOUNTER → 2024-06-24 10:24 | Outpatient (BNVA) | payer MEDICARE, SELFPAY | PROVIDERS: PCP Family Medicine; Visit Provider Anesthesiology Pain Medicine | DX: M54.9 Dorsalgia, unspecified (principal); M47.816 Spondylosis without myelopathy or radiculopathy, lumbar region; M51.16 Intervertebral disc disorders with radiculopathy, lumbar region; M50.90 Cervical disc disorder, unspecified, unspecified cervical region; M47.812 Spondylosis without myelopathy or radiculopathy, cervical region | CPT/HCPCS: 99214 ==

== ENCOUNTER → 2024-09-03 10:49 | Outpatient (BNVA) | payer MEDICARE, SELFPAY | PROVIDERS: PCP Family Medicine; Visit Provider Nurse Practitioner | DX: T14.8XXA Other injury of unspecified body region, initial encounter (principal); W57.XXXA Bitten or stung by nonvenomous insect and other nonvenomous arthropods, initial encounter | CPT/HCPCS: 86618; 86666; 86757 ==

== ENCOUNTER → 2024-09-13 11:20 | Outpatient (BNVA) | payer MEDICARE, SELFPAY | PROVIDERS: PCP Family Medicine; Visit Provider Family Medicine | DX: Z12.5 Encounter for screening for malignant neoplasm of prostate (principal); E11.9 Type 2 diabetes mellitus without complications; R97.20 Elevated prostate specific antigen [PSA] | CPT/HCPCS: 80053; 80061; 83036; 84153; 85025 ==

== ENCOUNTER → 2024-12-23 10:30 | Outpatient (BNVA) | payer MEDICARE, SELFPAY | PROVIDERS: PCP Family Medicine; Visit Provider Anesthesiology Pain Medicine | DX: M47.816 Spondylosis without myelopathy or radiculopathy, lumbar region (principal); M51.16 Intervertebral disc disorders with radiculopathy, lumbar region; M50.90 Cervical disc disorder, unspecified, unspecified cervical region; M47.812 Spondylosis without myelopathy or radiculopathy, cervical region | CPT/HCPCS: 99214 ==

== ENCOUNTER → 2024-12-31 10:02 | Outpatient (BNVA) | payer MEDICARE, SELFPAY | PROVIDERS: PCP Family Medicine | DX: R39.9 Unspecified symptoms and signs involving the genitourinary system (principal) | CPT/HCPCS: 81000 ==

== ENCOUNTER → 2025-01-08 10:12 | Outpatient (BNVA) | payer MEDICARE, SELFPAY | PROVIDERS: PCP Family Medicine; Visit Provider Anesthesiology Pain Medicine | DX: M47.816 Spondylosis without myelopathy or radiculopathy, lumbar region (principal); E11.9 Type 2 diabetes mellitus without complications | CPT/HCPCS: 36416; 64493; 64494; 64495; J1010; J3490; J9999 ==

== ENCOUNTER → 2025-01-09 10:28 | Outpatient (BNVA) | payer MEDICARE, SELFPAY | PROVIDERS: PCP Family Medicine; Visit Provider Anesthesiology Pain Medicine | DX: E11.9 Type 2 diabetes mellitus without complications (principal); Z01.818 Encounter for other preprocedural examination | CPT/HCPCS: 36416; 82962 ==

== ENCOUNTER → 2025-01-21 08:27 | Outpatient (BNVA) | payer MEDICARE, SELFPAY | PROVIDERS: PCP Family Medicine; Visit Provider Anesthesiology Pain Medicine | DX: M47.816 Spondylosis without myelopathy or radiculopathy, lumbar region (principal); M51.16 Intervertebral disc disorders with radiculopathy, lumbar region; M47.812 Spondylosis without myelopathy or radiculopathy, cervical region | CPT/HCPCS: 99214 ==

== ENCOUNTER → 2025-02-06 15:19 | Outpatient (BNVA) | payer MEDICARE, SELFPAY | PROVIDERS: PCP Family Medicine; Visit Provider Internal Medicine Cardiovascular Disease | DX: I25.10 Atherosclerotic heart disease of native coronary artery without angina pectoris (principal); I10 Essential (primary) hypertension; E78.5 Hyperlipidemia, unspecified; E11.9 Type 2 diabetes mellitus without complications; Z79.84 Long term (current) use of oral hypoglycemic drugs; Z87.891 Personal history of nicotine dependence; R07.9 Chest pain, unspecified | CPT/HCPCS: 93005; 99214 ==

== ENCOUNTER → 2025-02-14 11:02 | Outpatient (BNVA) | payer MEDICARE, SELFPAY | PROVIDERS: PCP Family Medicine; Visit Provider Family Medicine | DX: Z12.5 Encounter for screening for malignant neoplasm of prostate (principal); E11.9 Type 2 diabetes mellitus without complications; R97.20 Elevated prostate specific antigen [PSA]; I25.118 Atherosclerotic heart disease of native coronary artery with other forms of angina pectoris | CPT/HCPCS: 80053; 80061; 83036; 84153; 85025 ==

== ENCOUNTER → 2025-02-17 09:45 | Outpatient (BNVA) | payer MEDICARE, SELFPAY | PROVIDERS: PCP Family Medicine; Visit Provider Anesthesiology Pain Medicine | DX: M47.816 Spondylosis without myelopathy or radiculopathy, lumbar region (principal); M51.16 Intervertebral disc disorders with radiculopathy, lumbar region; M47.812 Spondylosis without myelopathy or radiculopathy, cervical region | CPT/HCPCS: 99214 ==